=== PATIENT | male | born 1965 | race Caucasian/White ===

== ENCOUNTER 2016-12-27 16:36 | Emergency (ER) | payer OTHER ==
--- NOTE | ~2016-12-27 | CT71 ---
[facility] A Service of [facility] RADIOLOGY TEXT RESULTS PATIENT: NAY FLETCHER LOCATION: [facility] : 69 UNIT #: [id number] AGE: [address]: Don Whitley DO SEX: M ORDER DR: [id number] [facility] [address] [place], [place] [address] [id number] E MR#: [id number] Acc #: [id number] NAME: NAY FLETCHER : 1965 SEX: M STUDY DATE/TIME: 12/27/2016 19:33 UNIT: [facility] ROOM: STUDY DESCRIPTION: CT Head Wo Contrast Attending Physician: Don Whitley D.O. Ordering Physician: Don Whitley D.O. Primary Care Physician: No Primary Care Physician MEDICAL IMAGING REPORT This report is preliminary unless electronic signature is present EXAM Head CT 12/27 INDICATIONS Patient intoxicated with slurred speech and unsteady gait today. TECHNIQUE Axial images were obtained from the base to the vertex without contrast. This CT exam was performed with one or more of the following radiation dose reduction techniques: Automatic exposure control, adjustment of mA and/or kV according to patient size, and iterative reconstruction. COMPARISON 11/06/2016. FINDINGS Again seen is generalized atrophy. Ventricular size and configuration remain stable. Again seen are left craniotomy changes. There is an old area of encephalomalacia in the left frontoparietal lobe. This is unchanged. No acute infarct or hemorrhage is seen. There are no masses. Chronic mucosal thickening is noted in the paranasal sinuses. Acute sinus disease may be present in the right sphenoid sinus. Additionally, there appears to be some packing material in the left ear and there is debris in the external auditory canal. Correlate clinically with history and physical exam findings. There are old facial bone fractures. No skull fracture. IMPRESSION 1. No acute findings in the brain. Chronic changes as above appears stable. 2. Acute sinusitis involving the right sphenoid sinus. There are chronic changes in paranasal sinuses as well. [facility] A Service [facility] RADIOLOGY TEXT RESULTS PATIENT: NAY FLETCHER LOCATION: [facility] : 69 UNIT #: [id number] AGE: [address]: Don Whitley DO SEX: M ORDER DR: 3. Left craniotomy with numerous old facial bone fractures. 4. Apparent packing material in the left ear with debris or soft tissue in the external auditory canal. 5. Stable encephalomalacia in the left frontoparietal region. Dictated by... Marquis Turk Jr., M.D. THIS IS AN ELECTRONICALLY VERIFIED REPORT Marquis Turk Jr., M.D. at 12/28/2016 10:08 AM JOHNNY/jong TD: 12/28/2016 10:01 JOB #: [id number] MEDICAL IMAGING REPORT Page 1 of 1 COPY
--- NOTE | ~2016-12-27 | CR127 ---
[facility] A Service of [facility] RADIOLOGY TEXT RESULTS PATIENT: NAY FLETCHER LOCATION: [facility] : 69 UNIT #: [id number] AGE: [address]: Don Whitley DO SEX: M ORDER DR: [id number] [facility] [address]. [place], [place] [address] [id number] E MR#: [id number] Acc #: [id number] NAME: NAY FLETCHER : 1965 SEX: M STUDY DATE/TIME: 12/27/2016 16:59 UNIT: [facility] ROOM: STUDY DESCRIPTION: CR Foot Complete Min 3 View Rt Attending Physician: Don Whitley D.O. Ordering Physician: Don Whitley D.O. Primary Care Physician: Primary Care Physician No MEDICAL IMAGING REPORT This report is preliminary unless electronic signature is present EXAM Right foot 12/27/2016 HISTORY Pain with ambulation over the last 3 years. FINDINGS Three views of the left foot were obtained. Intramedullary luisa is present in the distal tibia. No fracture or malalignment is seen. The soft tissues are normal. IMPRESSION Intramedullary luisa in the distal tibia. The foot is normal. Dictated by... Marquis Turk Jr., M.D. THIS IS AN ELECTRONICALLY VERIFIED REPORT Marquis Turk Jr., M.D. at 12/28/2016 10:07 AM JOHNNY/yumiko TD: 12/28/2016 08:00 JOB #: [id number] MEDICAL IMAGING REPORT Page 1 of 1 COPY
--- NOTE | ~2016-12-27 | CR126 ---
[facility] A Service of [facility] & [facility] RADIOLOGY TEXT RESULTS PATIENT: NAY FLETCHER LOCATION: [facility] : 69 UNIT #: [id number] AGE: [address]: Don Whitley DO SEX: M ORDER DR: [id number] [facility] [address] [place], [place] [address] [id number] E MR#: [id number] Acc #: [id number] NAME: NAY FLETCHER : 1965 SEX: M STUDY DATE/TIME: 12/27/2016 16:58 UNIT: [facility] ROOM: STUDY DESCRIPTION: CR Foot Complete Min 3 View Lt Attending Physician: Don Whitley D.O. Ordering Physician: Don Whitley D.O. Primary Care Physician: No Primary Care Physician MEDICAL IMAGING REPORT This report is preliminary unless electronic signature is present EXAM Left foot series 12/27/2016 HISTORY Pain. Difficulty ambulating. Began 3 years ago. FINDINGS AP, lateral, and oblique radiographs of the right foot are presented. Comparison 07/27/2006. Healed distal third and fourth metatarsal shaft fractures. No acute fracture. No traumatic malalignment. There appears to be relative hyperextension at the metatarsal phalangeal joints particularly the second through fifth metatarsal phalangeal joints. This may be the normal alignment for this patient. Correlate clinically. There is no soft tissue defect, subcutaneous air, or radiodense foreign body. Dictated by... Mark Forbes M.D. THIS IS AN ELECTRONICALLY VERIFIED REPORT Mark Forbes M.D. at 12/28/2016 2:17 PM VALENTE/richard TD: 12/28/2016 08:18 JOB #: [id number] MEDICAL IMAGING REPORT Page 1 of 1 COPY
[~2016-12-27 16:36] MED LIST: ALBUTEROL17 GM INH; BACTROBAN22 GM TP; CYANOCOBALAM1000 MCG PO; FOLIC ACID PO; FOLIC ACID1 MG PO; KEPPRA500 M1 PO; KEPPRA500 MG PO; LIBRIUM25 MG PO; MAG-OX 400400 MG PO; MULTI VITAMIN1 EACH PO; MULTI-VITAMIN1 EAC1 PO; NAPROXEN PO; NICOTINE PATCH1 BOX TD; NO MEDICATIONS; PEN-VEE K PO; SYMBICORT INH; THERAPEUTIC VI1 EACH PO; THIAMINE HCL100 M1 PO; THIAMINE HCL100 MG PO; VICODIN 5/500 T1 TAB PO; VICODIN PO
[2016-12-27 16:45] LABS: BASOPHIL% 0.7 % (0-2.5); EOSINOPHIL# 0.2 X10e3 (0-0.7); EOSINOPHIL% 3.5 % (0.0-7.0); HEMATOCRIT 43.7 % (38.0-50.0); HEMOGLOBIN 14.7 gm/dL (13.0-16.0); LYMPHOCYTE# 1.9 X10e3 (1.0-3.5); MEAN CELL VOLUME 92.3 FL (83-96); MEAN CORPUSCULAR HEMOGLOBIN 31.1 PG (28-34); MEAN CORPUSCULAR HGB CONC 33.7 g/dL (30-36); MEAN PLATELET VOLUME 6.8 FL (6.5-11.5); MONOCYTE# 0.3 X10e3 (0-1.0); MONOCYTE% 3.7 % (3.0-12.0); NEUTROPHIL# 4.5 X10e3 (1.5-7.1); NEUTROPHIL% 65.1 % (40-75); PLATELET COUNT 296 X10e3 (140-420); RED BLOOD COUNT 4.74 X10e (3.90-5.60); RED CELL DISTRIBUTION WIDTH 13.2 % (11.0-15.5); WHITE BLOOD COUNT 6.9 X10e3 (4.0-10.5)
[2016-12-27 16:46] LABS: DIFF IND NO
[2016-12-27 17:25] LABS: BLOOD UREA NITROGEN 10 mg/dL (9-23); BUN/CREATININE RATIO 11.11; CALCIUM SERUM 8.9 mg/dL (8.4-10.2); CARBON DIOXIDE 28 mmol/L (22-31); CHLORIDE 108 mmol/L (100-111); CREATININE SERUM 0.9 mg/dL (0.6-1.4); GLOM FILT RATE Estimated ABOVE60 mL/min (>60); GLUCOSE FASTING 131 mg/dL (70-110); POTASSIUM 3.2 mmol/L (3.5-5.1); SODIUM 142 mmol/L (135-145)
[2016-12-27 17:26] LABS: ALCOHOL BLOOD 172 mg/dL (0)
== END 2016-12-27 22:35 | disposition home or self-care (01) ==
LOC: CED 16:36
PROVIDERS: Emergency Medicine
DX: F10.129 Alcohol abuse with intoxication, unspecified (principal); Y90.6 Blood alcohol level of 120-199 mg/100 ml; M79.673 Pain in unspecified foot; G40.909 Epilepsy, unspecified, not intractable, without status epilepticus; Z98.890 Other specified postprocedural states
CPT/HCPCS: 36415; 70450; 73630; 80048; 84484; 85025; 99284; G0480

== ENCOUNTER 2017-01-06 10:34 | Emergency (ER) | payer OTHER ==
--- NOTE | ~2017-01-06 | CR127 ---
[facility] A Service of [facility] RADIOLOGY TEXT RESULTS PATIENT: NAY FLETCHER LOCATION: [facility] : 69 UNIT #: [id number] AGE: [address]: Zeb Starkey MD SEX: M ORDER DR: [id number] [facility] [address]. [place], [place] [address] [id number] E MR#: [id number] Acc #: [id number] NAME: NAY FLETCHER : 1965 SEX: M STUDY DATE/TIME: 01/06/2017 10:28 UNIT: [facility] ROOM: STUDY DESCRIPTION: CR Foot Complete Min 3 View Rt Attending Physician: Zeb Starkey M.D. Ordering Physician: Zeb Starkey M.D. Primary Care Physician: Primary Care Physician No MEDICAL IMAGING REPORT This report is preliminary unless electronic signature is present HISTORY Right foot HISTORY Foot pain for the past 3 days. No recent trauma. TECHNIQUE 3 views foot were obtained. FINDINGS Mild degenerative changes are seen at the interphalangeal joint of the great toe. Other joint spaces of the foot unremarkable. There is no evidence of fracture, bone destruction or foreign body. IMPRESSION Mild degenerative change interphalangeal joint of the great toe. Otherwise negative. Dictated by... Marquis Cooper M.D. THIS IS AN ELECTRONICALLY VERIFIED REPORT Marquis Cooper M.D. at 01/06/2017 6:01 PM ISRAEL/yumiko TD: 01/06/2017 12:32 JOB #: [id number] MEDICAL IMAGING REPORT Page 1 of 1 COPY
--- NOTE | ~2017-01-06 | CR169 ---
[facility] A Service of [facility] & [facility] RADIOLOGY TEXT RESULTS PATIENT: NAY FLETCHER LOCATION: [facility] : 69 UNIT #: [id number] AGE: [address]: Zeb Starkey MD SEX: M ORDER DR: [id number] [facility] [address]. [place], [place] [address] [id number] E MR#: [id number] Acc #: [id number] NAME: NAY FLETCHER : 1965 SEX: M STUDY DATE/TIME: 01/06/2017 10:30 UNIT: [facility] ROOM: STUDY DESCRIPTION: CR Knee 2 Views Lt Attending Physician: Zeb Starkey M.D. Ordering Physician: Zeb Starkey M.D. Primary Care Physician: No Primary Care Physician MEDICAL IMAGING REPORT This report is preliminary unless electronic signature is present EXAM Left knee. HISTORY Knee pain the past 3 days. No recent trauma. TECHNIQUE 3 views of the knee were obtained. FINDINGS The upper end of a tibial luisa is noted. The knee joint is normal with no evidence of fracture, effusion, or osteophyte formation. IMPRESSION Healed tibial fracture. Negative knee series. Dictated by... Marquis Cooper M.D. THIS IS AN ELECTRONICALLY VERIFIED REPORT Marquis Cooper M.D. at 01/06/2017 6:01 PM ISRAEL/bárbara TD: 01/06/2017 12:37 JOB #: [id number] MEDICAL IMAGING REPORT Page 1 of 1 COPY
== END 2017-01-06 11:52 | disposition home or self-care (01) ==
LOC: CED 10:34
DX: G89.29 Other chronic pain (principal); M25.562 Pain in left knee; M79.671 Pain in right foot; E11.9 Type 2 diabetes mellitus without complications; F32.9 Major depressive disorder, single episode, unspecified; F17.200 Nicotine dependence, unspecified, uncomplicated
CPT/HCPCS: 73560; 73630; 99284

== ENCOUNTER 2017-01-16 19:58 | Emergency (ER) | payer OTHER | END 2017-01-16 23:13 | disposition home or self-care (01) | LOC: CED 19:58 | DX: G62.9 Polyneuropathy, unspecified (principal) | CPT/HCPCS: 99282 ==

== ENCOUNTER 2017-01-18 02:20 | Emergency (ER) | payer OTHER | END 2017-01-18 02:30 | disposition left against medical advice (07) | LOC: CED 02:20 | DX: Z53.21 Procedure and treatment not carried out due to patient leaving prior to being seen by health care provider (principal) ==

== ENCOUNTER 2017-01-25 02:13 | Emergency (ER) | payer OTHER | END 2017-01-25 05:30 | disposition home or self-care (01) | LOC: CED 02:13 | DX: F10.10 Alcohol abuse, uncomplicated (principal); F32.9 Major depressive disorder, single episode, unspecified; E11.9 Type 2 diabetes mellitus without complications; F17.200 Nicotine dependence, unspecified, uncomplicated | CPT/HCPCS: 99282 ==

== ENCOUNTER 2017-01-30 21:53 | Emergency (ER) | payer OTHER | END 2017-01-30 22:49 | disposition home or self-care (01) | LOC: CED 21:53 | DX: G44.209 Tension-type headache, unspecified, not intractable (principal); F17.210 Nicotine dependence, cigarettes, uncomplicated | CPT/HCPCS: 82947; 99282 ==

== ENCOUNTER 2017-02-03 06:33 | Emergency (ER) | payer OTHER ==
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
== END 2017-02-03 09:55 | disposition home or self-care (01) ==
LOC: CED 06:33
DX: F10.129 Alcohol abuse with intoxication, unspecified (principal); J32.9 Chronic sinusitis, unspecified; G40.909 Epilepsy, unspecified, not intractable, without status epilepticus; E11.9 Type 2 diabetes mellitus without complications
CPT/HCPCS: 70450; 82947; 99284; G0480

== ENCOUNTER 2017-02-22 20:05 | Emergency (ER) | payer OTHER | END 2017-02-22 22:35 | disposition home or self-care (01) | LOC: CED 20:05 | DX: M25.571 Pain in right ankle and joints of right foot (principal); E11.9 Type 2 diabetes mellitus without complications; F17.200 Nicotine dependence, unspecified, uncomplicated | CPT/HCPCS: 99282 ==

== ENCOUNTER 2017-03-03 23:04 | Emergency (ER) | payer OTHER ==
[2017-03-04 00:38] LABS: AMPHETAMINE NEG (NEG); BARBITURATES NEG (NEG); BENZODIAZEPINES NEG (NEG); COCAINE NEG (NEG); MARIJUANA NEG (NEG); OPIATES NEG (NEG); TRICYCLIC ANTIDEPRESSANTS NEG (NEG); U METHADONE NEG (NEG)
== END 2017-03-04 10:27 | disposition short-term general hospital (02) ==
LOC: CED 23:04
PROVIDERS: Student in an Organized Health Care Education/Training Program
DX: R45.851 Suicidal ideations (principal); J44.9 Chronic obstructive pulmonary disease, unspecified; F17.200 Nicotine dependence, unspecified, uncomplicated
CPT/HCPCS: 36415; 80307; 82947; 99285; G0480

== ENCOUNTER 2017-03-04 01:00 | Inpatient (IN) | payer OTHER ==
--- NOTE | ~2017-03-04 | DS ---
Unit #: [id number] #: [id number] Patient: NAY FLETCHER [id number] [facility] [address] [place] [address] [id number] I MR#: [id number] NAME: NAY FLETCHER ROOM: [facility] Age: 51 Sex: M Admission Date: 03/04/2017 : 1965 Discharge Date: 03/08/2017 Attending Physician: Zach Chao M.D. Primary Care Physician: Primary Care Physician No DISCHARGE SUMMARY REASON FOR ADMISSION Depression. DIAGNOSTIC STUDIES LABORATORY RESULTS: Unremarkable. HOSPITAL COURSE The patient was admitted to inpatient unit on 03/04/2017 and discharged on 03/08/2017. The patient was treated with group therapy, individual therapy, and medication management. The patient responded well with the above modalities of treatment, made progress. Subsequently, the patient was discharged. DISCHARGE MEDICATIONS The patient was discharged on the following medications: Celexa 20 mg at bedtime for depression and NovoLog as advised for diabetes. DISCHARGE DIAGNOSES Psychiatric: Major depressive disorder, recurrent, severe, F33.2. Secondary diagnosis: Deferred. Medical diagnoses: History of seizure, migraine headache, history of stroke, aneurysm, traumatic brain injury, diabetes. Stressors: Psychosocial stressors, financial problem, housing problem. DISCHARGE INSTRUCTIONS The patient is to follow up in outpatient clinic as per nephrology social worker. CONDITION ON DISCHARGE The patient was pleasant and cooperative. Denied any psychotic symptom or any suicidal ideation. PROGNOSIS Guarded. DIET AND ACTIVITY As tolerated. Dictated by... Zach Chao M.D. Unit #: [id number] #: [id number] Patient: NAY FLETCHER SZC/modl TD: 03/08/2017 23:20 JOB #: [id number] DISCHARGE SUMMARY Page 1 of 1 X Zcah Chao MD X DISCHARGE SUMMARY
--- NOTE | ~2017-03-04 | HP ---
Unit #: [id number] #: [id number] Patient: TALAT FLETCHER [id number] [place] [address] [id number] I MR#: [id number] NAME: TALAT FLETCHER ROOM: [facility] Age: 51 Sex: M Admission Date: 03/04/2017 : 1965 Attending Physician: Zach Chao M.D. Admitting Physician: Zach Chao M.D. Primary Care Physician: Primary Care Physician No HISTORY AND PHYSICAL HISTORY OF PRESENT ILLNESS Talat is a 51 year old admitted to [facility] because of his continued abuse of alcohol. PAST MEDICAL HISTORY 1. Long history of alcohol abuse 2. History of withdrawal seizures 3. Diabetes mellitus 4. Peripheral neuropathy 5. History of [facility] PAST SURGICAL HISTORY 1. Craniotomy 2. Fractured jaw with ORIF ALLERGIES No known drug allergies. SOCIAL HISTORY Smokes one pack per day. Drinks alcohol on a daily basis and denies illicit drug use. FAMILY HISTORY Medically noncontributory. REVIEW OF SYSTEMS CONSTITUTIONAL: No fever or chills. HEENT: Denies any sore throat, ear pain or runny nose. CARDIOVASCULAR: Denies chest pain, irregular heart rhythm or palpitations. CHEST: Denies shortness of breath or cough. No hemoptysis. GASTROINTESTINAL: Denies nausea, vomiting, diarrhea or chronic constipation. ENDOCRINE: Denies history of increased thirst or urination. No recent significant weight loss or gain. GENITOURINARY: Denies dysuria, frequency, or hematuria. SKIN: Denies any rashes. HEMATOLOGIC: Denies history of increased bleeding or bruising. MUSCULOSKELETAL: Denies any hot, swollen joints. No generalized muscle pain. NEUROLOGIC: Denies problems with vision or speech. No frequent, severe headaches. No numbness, tingling or weakness in any extremities. Denies loss of bladder or bowel control. Unit #: [id number] #: [id number] Patient: TALAT FLETCHER CURRENT MEDICATIONS Detox protocol PHYSICAL EXAMINATION GENERAL: Alert, well-nourished, in no apparent distress. VITAL SIGNS: Blood pressure 140/88, heart rate 80, respirations 16, temperature 98.6. WEIGHT: 145 pounds. HEIGHT: 5'7". SKIN: Warm and dry without rash or lesion. HEENT: Normocephalic. TMs not viewed. Oral and nasal passages clear. Conjunctivae clear. Pupils equal, round and reactive to light and accommodation. Extraocular movements intact. NECK: Supple without lymphadenopathy or thyromegaly. HEART: Regular rate and rhythm without murmur. LUNGS: Clear. ABDOMEN: Soft, nontender. : Not done. EXTREMITIES: No evidence of cyanosis, clubbing or edema. Moves all extremities without focal deficit. NEUROLOGICAL: Grossly within normal limits. Cranial Nerves: II: Visual masters are intact. III, IV AND : Extraocular movements are intact. Pupils are equal, round and reactive to light. V: Facial sensation is grossly normal. VII: Facial movements and expression are normal. VIII: Auditory acuity grossly intact. IX, X: Uvula is midline. Phonation is normal. XI: Patient shrugs shoulders and turns head normally. XII: Tongue protrudes in the midline. Sensory and Motor Function: Sensory and motor sensation is grossly normal. Motor: moves all extremities well. Coordination: Gait is normal. Deep Tendon Reflexes: Intact. IMPRESSION Psychiatric admission RECOMMENDATIONS PSYCHIATRIC: Per psychiatrist. MEDICAL: I see no contraindications to participating in facility's activities. MEDICAL PROGNOSIS Good. MEDICAL CONDITION Stable. Dictated by... Colleen Taylor PZairaAZaira-John. for Debbie Jacobson/eddie Unit #: [id number] #: [id number] Patient: TALAT FLETCHER TD: 03/05/2017 07:11 JOB #: [id number] HISTORY AND PHYSICAL Page 1 of 1 X Colleen Taylor X HISTORY AND PHYSICAL
--- NOTE | ~2017-03-04 | PN ---
Unit #: [id number] #: [id number] Patient: TALAT DING [id number] [facility] [address] [place] [address] [id number] I MR#: [id number] NAME: TALAT DING ROOM: [facility] Age: 51 Sex: M Admission Date: 03/04/2017 : 1965 Attending Physician: Zach Chao M.D. Admitting Physician: Debbie Shah PROGRESS NOTES DATE OF SERVICE: 03/05/2017 DISCUSSION Mr. Talat Ding is a 51-year-old male, seen on 03/05/2017. The patient interviewed, chart reviewed, and obtained information from nursing staff. The patient reported feeling sad, depressed, withdrawn, isolative, and flat affect. The patient's vital signs; temperature 98.4, heart rate 51, and blood pressure 110/72. REVIEW OF SYSTEMS Complete review of systems unremarkable. MENTAL STATUS EXAMINATION General appearance, the patient dressed casually. Hygiene and grooming, poor. Attention span and concentration, poor. Oriented in place and person. Mood and affect, sad and depressed. Speech, monotone. Thought process, concrete. The patient reported having suicidal ideation, no plans. Denied any homicidal ideation. Guarded. Recent and remote memory, poor. Insight and judgment, poor. DIAGNOSIS Major depressive disorder, recurrent, severe, F33.2. ASSESSMENT AND PLAN Advised to start the patient on Celexa 20 mg daily. If needed, consider further adjustment of medication. Dictated by... Debbie Shah/serafin TD: 03/06/2017 16:48 JOB #: [id number] Unit #: [id number] #: [id number] Patient: TALAT DING VEDAMARY PROGRESS NOTES Page 1 of 1 X Zach Chao MD PROGRESS NOTE
--- NOTE | ~2017-03-04 | PA ---
Unit #: [id number] #: [id number] [facility]: [facility] [id number] [facility] [address] [place] [address] [id number] I MR#: [id number] NAME: TALAT DING ROOM: [facility] Age: 51 Sex: M Admission Date: 03/04/2017 : 1965 Date of Assessment: Attending Physician: Zach Chao M.D. Admitting Physician: Zach Chao M.D. PSYCHIATRIC ASSESSMENT INFORMANT Patient reliability, fair informant, and chart reliability, good. CHIEF COMPLAINT Depression. HISTORY OF PRESENT ILLNESS Mr. Talat Ding is a 51-year-old male, admitted with the above-mentioned complaint. The patient presented with suicidal ideation. The patient reported that he does not want to live anymore, feeling of hopelessness, worthlessness, feeling miserable. The patient has a history of traumatic brain injury, history of diabetes type 2. The patient reported that he has no money, no food, no cloths, and homeless. The patient denied any homicidal ideation or any self-injurious behavior. The patient denied any hallucination. The patient reports that he is noncompliant with medication, not sleeping, and having nightmares. The patient needed inpatient admission at this time for psychiatric stabilization. PAST PSYCHIATRIC HISTORY Remarkable [facility]. History of previous multiple hospitalization in 2015. FAMILY HISTORY AND SOCIAL HISTORY The patient currently homeless. Family psychiatric illness is unknown. No known history of any abuse. Financial problem and housing problem. MEDICAL HISTORY Remarkable for history of craniotomy, left leg surgery, hand surgery, neck surgery, history of chronic pain, migraine, traumatic brain injury. Musculoskeletal; muscle strength and tone, no atrophy or abnormal movement. Gait normal. The patient has a history of diabetes, seizure, migraine, history of stroke, aneurysm, and traumatic brain injury. ALLERGIES No known drug allergies. MEDICATION HISTORY The patient is currently noncompliant with medication. REVIEW OF SYSTEMS HEENT: Eyes, clear. Ears, nose, mouth, and throat; clear. CARDIOVASCULAR: Unremarkable. RESPIRATORY: Unremarkable Unit #: [id number] #: [id number] Patient: TALAT DING GI: Unremarkable. : Unremarkable. Skin, lymph node, neurological, endocrine, hematological, allergic, immunologic;, unremarkable. Muscle strength and tone, no atrophy or abnormal movement. Gait normal. SUBSTANCE ABUSE HISTORY The patient reported tobacco use, age of onset 19; alcohol, age of onset 27. Marijuana abuse at 9. MENTAL STATUS EXAMINATION CONSTITUTIONAL: Measurement of vital signs; temperature is 98.7, pulse 51, respirations 16, and blood pressure 110/72. Height 5 feet 7 inches, weight 145 pounds. GENERAL APPEARANCE: The patient dressed casually. The patient did not show any facial deformity. MUSCULOSKELETAL: Please see above. PSYCHIATRIC EXAMINATION Description of speech; regular rate, normal volume. Description of thought process, goal directed. Description of association, intact. Description of abnormal psychotic thinking; the patient denied any hallucination, delusions, mood lability, or depression. Description of the patient's judgment, concerning everyday activity, poor. Social situation, poor. Concerning psychiatric condition, poor. Complete mental status examination; oriented in time, place, and person. Recent and remote memory, fair. Attention span and concentration, fair. Language, able to name object and repeat phrases. Fund of knowledge, aware of current event and past history. Vocabulary, fair to poor. Mood and affect, sad and dysphoric. Insight and judgment, fair to poor. ASSETS AND LIABILITIES Assets; the patient is articulate and able to take care of his ADL. Liability; history of depression, possible cognitive deficit from traumatic brain injury. ADMITTING DIAGNOSES Psychiatric: Major depressive disorder, recurrent, severe, F33.2. Secondary diagnosis: Deferred. Medical diagnosis: History of seizure, migraine headache, history of stroke, aneurysm, traumatic brain injury, diabetes. Stressors: Psychosocial stressor. Financial problem and housing problem. PSYCHIATRIC PLAN AND TREATMENT GOAL AND DISCHARGE PLAN 1. Advised to admit the patient on the inpatient unit, provide safe, supportive, and structured environment. 2. Order labs; CBC, CMP, UA, and UDS. 3. Precaution for self-harm. 4. The patient to attend all the programing on the inpatient unit, group therapy, individual therapy, family session if possible. Advised to resume the patient's medications. If needed, consider further adjustment of medication. Treatment goal to attain euthymic mood, gain insight into his problem, and learn coping skills. Unit #: [id number] #: [id number] Patient: TALAT DING DISCHARGE PLAN Plan to stabilize the patient and consider followup in outpatient program ESTIMATED LENGTH OF STAY 3 to 5 days. Dictated by... Debbie Shah/serafin TD: 03/05/2017 17:33 JOB #: [id number] PSYCHIATRIC ASSESSMENT Page 1 of 1 X Zach Chao MD X PSYCHIATRIC ASSESSMENT
--- NOTE | ~2017-03-04 | PN ---
Unit #: [id number] #: [id number] Patient: TALAT FLETCHER [id number] [facility] [address] [place] [address] [id number] MR#: [id number] NAME: TALAT FLETCHER ROOM: [facility] Age: 51 Sex: M Admission Date: 03/04/2017 : 1965 Attending Physician: Zach Chao M.D. Admitting Physician: Zach Chao M.D. Primary Care Physician: Primary Care Physician Pamela LOVE PROGRESS NOTES DATE 03/04/2017 DISCUSSION Mr. Talat Fletcher is a 51-year-old male seen on 03/06/2017. The patient interviewed, chart reviewed. Obtained information from nursing staff. The patient tolerating medication fairly well. Mood sad, dysphoric, flat affect, withdrawn, isolative, guarded. Vital signs stable 98.4, 70, 142/88. The patient seclusive, isolative, complete review of systems unremarkable. MENTAL STATUS EXAMINATION General appearance, the patient dressed casually in hospital attire. Attention span and concentration fair. Oriented to time, place and person. Mood and affect sad, depressed. Speech monotone. Thought process concrete. The patient denied any thoughts of harming self or others but having passive SI. Recent and remote memory poor. Insight and judgement poor. DIAGNOSES Mood disorder NOS Alcohol use disorder severe ASSESSMENT/PLAN Advise to continue with current medication and therapeutic protocol. If needed consider further adjustment of medication. Dictated by... Debbie Shah/eddie TD: 03/07/2017 12:44 JOB #: [id number] Unit #: [id number] #: [id number] Patient: TALAT FLETCHER VEDAMARY PROGRESS NOTES Page 1 of 1 X Zach Chao MD PROGRESS NOTE
--- NOTE | ~2017-03-04 | PN ---
Unit #: [id number] #: [id number] Patient: TALAT FLETCHER [id number] [facility] [address] [place] [address] [id number] MR#: [id number] NAME: TALAT FLETCHER ROOM: [facility] Age: 51 Sex: M Admission Date: 03/04/2017 : 1965 Attending Physician: Zach Chao M.D. Admitting Physician: Zach Chao M.D. Primary Care Physician: Primary Care Physician Pamela LOVE PROGRESS NOTES DATE 03/07/2017 DISCUSSION Talat Fletcher is a 51-year-old male seen on 03/07/2017. The patient interviewed, chart reviewed. Obtained information from nursing staff. The patient was compliant and cooperative. Mood sad, dysphoric, flat affect but able to contract for safety. Complete review of systems unremarkable. MENTAL STATUS EXAMINATION General appearance, the patient dressed in hospital attire. Attention span and concentration fair. Oriented to place and person. Mood and affect sad, dysphoric. Speech monotone. Thought process concrete. The patient denied any thoughts of harming self or others but guarded. Recent and remote memory poor. Insight and judgement poor. DIAGNOSES Bipolar mood disorder NOS ASSESSMENT/PLAN Advise to continue with current medication and therapeutic protocol. If needed consider further adjustment of medication. Dictated by... Debbie Shah/eddie TD: 03/08/2017 23:55 JOB #: [id number] Unit #: [id number] #: [id number] Patient: TALAT FLETCHER VEDAMARY PROGRESS NOTES Page 1 of 1 X Zach Chao MD PROGRESS NOTE
[2017-03-05 14:13] LABS: BASOPHIL# 0.1 X10e3 (0-0.3); BASOPHIL% 1.2 % (0-2.5); EOSINOPHIL# 0.3 X10e3 (0-0.7); EOSINOPHIL% 4.6 % (0.0-7.0); HEMATOCRIT 42.8 % (38.0-50.0); HEMOGLOBIN 14.2 gm/dL (13.0-16.0); LYMPHOCYTE# 1.9 X10e3 (1.0-3.5); LYMPHOCYTE% 33.1 % (17.0-45.0); MEAN CELL VOLUME 92.8 FL (83-96); MEAN CORPUSCULAR HEMOGLOBIN 30.9 PG (28-34); MEAN CORPUSCULAR HGB CONC 33.3 g/dL (30-36); MEAN PLATELET VOLUME 7.9 FL (6.5-11.5); MONOCYTE# 0.4 X10e3 (0-1.0); MONOCYTE% 6.2 % (3.0-12.0); NEUTROPHIL# 3.2 X10e3 (1.5-7.1); NEUTROPHIL% 54.9 % (40-75); PLATELET COUNT 232 X10e3 (140-420); RED BLOOD COUNT 4.61 X10e (3.90-5.60); RED CELL DISTRIBUTION WIDTH 13.4 % (11.0-15.5); WHITE BLOOD COUNT 5.9 X10e3 (4.0-10.5)
[2017-03-05 14:16] LABS: DIFF IND NO
[2017-03-05 14:50] LABS: ALBUMIN SERUM 3.9 g/dL (3.5-5.0); BILIRUBIN,TOTAL 0.3 mg/dL (0.2-2.0); BUN/CREATININE RATIO 21.25; CREATININE SERUM 0.8 mg/dL (0.6-1.4); GLOM FILT RATE Estimated 104.9 mL/min (>60); POTASSIUM 4.1 mmol/L (3.5-5.1)
[2017-03-06 11:47] LABS: URINE APPEARANCE CLEAR; URINE BILIRUBIN NEG (NEG); URINE BLOOD NEG (NEG); URINE COLOR YELLOW; URINE GLUCOSE NEG (NEG); URINE KETONE NEG (NEG); URINE LEUKOCYTE ESTERASE NEG (NEG); URINE NITRATE NEG (NEG); URINE PH 6.5 (5-8); URINE PROTEIN NEG (NEG); URINE SPECIFIC GRAVITY 1.007 (1.003-1.035); URINE UROBILINOGEN 0.2 MG/DL (NEG)
== END 2017-03-08 11:19 | DRG 885 ==
LOC: P1E 10:59 → POF 10:59 → P1S 13:05 → P1E 14:11
PROVIDERS: Psychiatry & Neurology Psychiatry
DX: F33.2 Major depressive disorder, recurrent severe without psychotic features (principal); E11.9 Type 2 diabetes mellitus without complications; R45.851 Suicidal ideations; Z86.73 Personal history of transient ischemic attack (TIA), and cerebral infarction without residual deficits; Z87.820 Personal history of traumatic brain injury; Z59.0 Homelessness; Z91.14 Patient's other noncompliance with medication regimen; F17.210 Nicotine dependence, cigarettes, uncomplicated; F10.20 Alcohol dependence, uncomplicated
CPT/HCPCS: 80053; 81003; 82947; 85025; 86592

== ENCOUNTER 2017-03-13 16:20 | Emergency (ER) | payer OTHER ==
[2017-03-13 21:09] LABS: AMPHETAMINE NEG (NEG); BARBITURATES NEG (NEG); BENZODIAZEPINES NEG (NEG); COCAINE NEG (NEG); MARIJUANA NEG (NEG); OPIATES NEG (NEG); TRICYCLIC ANTIDEPRESSANTS NEG (NEG); U METHADONE NEG (NEG)
== END 2017-03-14 01:20 ==
LOC: CED 16:20 → CFTX 20:28
PROVIDERS: Emergency Medicine
DX: R45.850 Homicidal ideations (principal); R56.9 Unspecified convulsions; F17.200 Nicotine dependence, unspecified, uncomplicated
CPT/HCPCS: 36415; 80307; 99285; G0480

== ENCOUNTER 2017-03-13 21:00 | Inpatient (IN) | payer OTHER ==
--- NOTE | ~2017-03-13 | PA ---
Unit #: [id number] #: [id number] Patient: TALAT DING [id number] [facility] [address] [place] [address] [id number] I MR#: [id number] NAME: TALAT DING ROOM: [facility] Age: 51 Sex: M Admission Date: 03/14/2017 : 1965 Date of Assessment: 03/14/2017 Attending Physician: Zach Chao M.D. Admitting Physician: Zach Chao M.D. Primary Care Physician: Primary Care Physician No PSYCHIATRIC ASSESSMENT INFORMANTS The patient's reliability, fair; chart reliability, good. CHIEF COMPLAINT Depression and suicidal ideation. HISTORY OF PRESENT ILLNESS Mr. Talat Ding is a 51-year-old male, well known to us from his previous admission on 03/04/2017, presented with suicidal ideation, unable to contract for safety. The patient reported thoughts of cutting himself with a jig box operator. The patient denied any psychotic symptom. Reports maintaining sobriety, compliant with medication. Denied any other complaints at this time. Needing inpatient admission at this time for psychiatric stabilization as the patient unable to contract for safety at this time. PAST PSYCHIATRIC HISTORY Remarkable [facility] on [facility]. FAMILY HISTORY AND SOCIAL HISTORY The patient currently homeless. No known history of any abuse. No history of any financial problems. MEDICAL HISTORY Remarkable for craniotomy, left leg surgery, hand surgery, neck surgery, history of chronic pain, migraine, traumatic brain injury. Musculoskeletal; strength and tone, no atrophy or abnormal movement. Gait abnormal. The patient has a history of seizure disorder, migraine, history of stroke, aneurysm, traumatic brain injury. ALLERGIES No known drug allergies. MEDICATIONS The patient is currently noncompliant with medication, but prescribed Celexa 20 mg daily. REVIEW OF SYSTEMS HEENT: Eyes, clear. Ears, nose, mouth, and throat; clear. CARDIOVASCULAR: Unremarkable. RESPIRATORY: Unremarkable. Unit #: [id number] #: [id number] Patient: TALAT DING GI: Unremarkable. : Unremarkable. SKIN: Unremarkable. LYMPH NODE: Unremarkable. NEUROLOGIC: Unremarkable. ENDOCRINE: Unremarkable. HEMATOLOGIC: Unremarkable. ALLERGIC/IMMUNOLOGIC: Unremarkable. MUSCULOSKELETAL: Muscle strength and tone, no atrophy or abnormal movement. Gait abnormal. SUBSTANCE ABUSE HISTORY The patient reported history of tobacco use, age of onset 19; alcohol, age of onset 27; marijuana, age of onset 9. MENTAL STATUS EXAMINATION CONSTITUTIONAL: Measurement of vital signs; temperature 97.4, pulse 78, respirations 18, blood pressure 128/87. GENERAL APPEARANCE: The patient dressed casually in hospital attire. No facial deformity noted. MUSCULOSKELETAL: Please see above. PSYCHIATRIC EXAMINATION Description of speech; slow. Description of thought process, goal directed. Description of association, intact. Description of abnormal psychotic thinking; the patient denied any hallucination or delusions, but suicidal ideation, denied any homicidal ideation. Mood lability. Description of the patient's judgment; concerning everyday activity, poor. Social situation, poor. Concerning psychiatric condition, poor. Complete mental status examination; oriented in time, place, and person. Recent and remote memory, fair. Attention span and concentration, fair. Language, able to name object and repeat phrases. Fund of knowledge, aware of current event and passive vocabulary intact. Mood and affect, sad and dysphoric. Insight and judgment, fair to poor. ASSETS AND LIABILITIES Assets; the patient is articulate, able to take care of his ADL. Liability; history of depression, homelessness. ADMITTING DIAGNOSES Psychiatric: Major depressive disorder, recurrent, severe, F33.2. Secondary diagnosis: Deferred. Medical diagnoses: History of seizure, migraine headache, history of stroke, aneurysm, traumatic brain injury, diabetes. Stressors: Psychosocial stressor, financial problem, and housing problem. PSYCHIATRIC PLAN AND TREATMENT GOAL 1. Advised to admit the patient on the inpatient unit. Provide safe, supportive, and structured environment. 2. Ordered labs; CBC, CMP, UA, and UDS. 3. Precaution for self-harm. The patient to resume home medication and if needed, consider further adjustment of medication. The patient to attend all the programing on the inpatient unit with group therapy, individual therapy. Treatment goal to attain euthymic mood, gain insight Unit #: [id number] #: [id number] Patient: TALAT DING into his problem, and learn coping skills. DISCHARGE PLAN Plan to stabilize the patient and consider followup in outpatient program. ESTIMATED LENGTH OF STAY 5 days. Dictated by... Zach Chao M.D. LUCY/serafin TD: 03/15/2017 07:56 JOB #: [id number] PSYCHIATRIC ASSESSMENT Page 1 of 1 X Zach Chao MD PSYCHIATRIC ASSESSMENT
--- NOTE | ~2017-03-13 | DS ---
Unit #: [id number] #: [id number] Patient: NAY FLETCHER [id number] [facility] [address] [place] [address] [id number] I MR#: [id number] NAME: NAY FLETCHER ROOM: [facility] Age: 51 Sex: M Admission Date: 03/14/2017 : 1965 Discharge Date: 03/15/2017 Attending Physician: Zach Chao M.D. DISCHARGE SUMMARY REASON FOR ADMISSION Suicidal ideation. DIAGNOSTIC STUDIES LABORATORY RESULTS: Unremarkable. HOSPITAL COURSE The patient was admitted to inpatient unit on 03/14/2017 and discharged on 03/15/2017. The patient was treated on the inpatient unit with medication management, psychotherapy, and structured milieu. The patient showed improvement, maintained safe behavior. The patient requested to be discharged. Subsequently, the patient was discharged with a plan to follow up in outpatient program, as the patient is not suicidal or homicidal. DISCHARGE MEDICATIONS Celexa 20 mg daily for depression. DISCHARGE DIAGNOSES Psychiatric: Major depressive disorder, recurrent, severe, F33.2. Secondary diagnosis: Deferred. Medical diagnosis: History of seizure disorder, migraine, history of stroke, aneurysm, traumatic brain injury, diabetes. Stressors: Psychosocial stressors. DISCHARGE INSTRUCTIONS The patient to follow up in outpatient clinic as per social services designee. CONDITION ON DISCHARGE The patient was pleasant and cooperative. Denied any psychotic symptom or any suicidal ideation. PROGNOSIS Guarded. DIET AND ACTIVITY As tolerated. Dictated by... Unit #: [id number] #: [id number] Patient: NAY FLETCHER Zach Chao M.D. SZC/starl TD: 03/16/2017 01:56 JOB #: [id number] DISCHARGE SUMMARY Page 1 of 1 X Zach Chao MD X DISCHARGE SUMMARY
--- NOTE | ~2017-03-13 | HP ---
Unit #: [id number] #: [id number] Patient: TALAT FLETCHER [id number] [facility] [address] [place] [address] [id number] I MR#: [id number] NAME: TALAT FLETCHER ROOM: [facility] Age: 51 Sex: M Admission Date: 03/14/2017 : 1965 Attending Physician: Zach Chao M.D. Admitting Physician: Zach Chao M.D. Primary Care Physician: Primary Care Physician No HISTORY AND PHYSICAL NOTE Talat is a 51 year old admitted to [address] [place] [address] because of his continued abuse of alcohol. He was discharged from this facility after treatment for the same. The patient was seen and H and P dated 03/04/2017 was reviewed. This is current. No changes. Please see H and P dated 03/04/2017. Dictated by... Colleen Taylor P.A.-C. for Debbie Jacobson/eddie TD: 03/15/2017 03:42 JOB #: [id number] HISTORY AND PHYSICAL Page 1 of 1 X Colleen Taylor HISTORY AND PHYSICAL
[2017-03-14 09:30] LABS: BASOPHIL# 0.1 X10e3 (0-0.3); EOSINOPHIL# 0.4 X10e3 (0-0.7); EOSINOPHIL% 6.4 % (0.0-7.0); HEMATOCRIT 42.1 % (38.0-50.0); LYMPHOCYTE# 2.6 X10e3 (1.0-3.5); LYMPHOCYTE% 44.4 % (17.0-45.0); MEAN CELL VOLUME 92.9 FL (83-96); MEAN CORPUSCULAR HEMOGLOBIN 30.9 PG (28-34); MEAN CORPUSCULAR HGB CONC 33.3 g/dL (30-36); MEAN PLATELET VOLUME 7.6 FL (6.5-11.5); MONOCYTE# 0.4 X10e3 (0-1.0); MONOCYTE% 6.8 % (3.0-12.0); NEUTROPHIL# 2.4 X10e3 (1.5-7.1); NEUTROPHIL% 41.4 % (40-75); PLATELET COUNT 236 X10e3 (140-420); RED BLOOD COUNT 4.53 X10e (3.90-5.60); RED CELL DISTRIBUTION WIDTH 13.6 % (11.0-15.5); WHITE BLOOD COUNT 5.9 X10e3 (4.0-10.5)
[2017-03-14 09:39] LABS: DIFF IND NO
[2017-03-14 09:49] LABS: ALBUMIN SERUM 3.9 g/dL (3.5-5.0); BILIRUBIN,TOTAL 1.1 mg/dL (0.2-2.0); BUN/CREATININE RATIO 16.66; CALCIUM SERUM 9.1 mg/dL (8.4-10.2); CREATININE SERUM 0.9 mg/dL (0.6-1.4); GLOM FILT RATE Estimated 99.9 mL/min (>60); POTASSIUM 3.9 mmol/L (3.5-5.1)
[2017-03-15 09:56] LABS: URINE APPEARANCE CLEAR; URINE BILIRUBIN NEG (NEG); URINE BLOOD NEG (NEG); URINE COLOR DK YELLOW; URINE GLUCOSE NEG (NEG); URINE KETONE NEG (NEG); URINE LEUKOCYTE ESTERASE NEG (NEG); URINE NITRATE NEG (NEG); URINE PH 5.5 (5-8); URINE PROTEIN NEG (NEG); URINE SPECIFIC GRAVITY 1.024 (1.003-1.035); URINE UROBILINOGEN 0.2 MG/DL (NEG)
== END 2017-03-15 12:00 | disposition home or self-care (01) | DRG 885 ==
LOC: P2L 03-14 01:48
PROVIDERS: Psychiatry & Neurology Psychiatry
DX: F33.2 Major depressive disorder, recurrent severe without psychotic features (principal); E11.9 Type 2 diabetes mellitus without complications; R45.851 Suicidal ideations; Z86.73 Personal history of transient ischemic attack (TIA), and cerebral infarction without residual deficits; Z87.820 Personal history of traumatic brain injury; Z59.0 Homelessness; G40.909 Epilepsy, unspecified, not intractable, without status epilepticus
CPT/HCPCS: 80053; 81003; 82947; 85025; 86592

== ENCOUNTER 2017-03-22 03:53 | Emergency (ER) | payer OTHER | END 2017-03-22 11:55 | disposition home or self-care (01) | LOC: CED 03:53 | DX: M79.671 Pain in right foot (principal); M79.672 Pain in left foot; R51 Headache; E11.9 Type 2 diabetes mellitus without complications; F17.200 Nicotine dependence, unspecified, uncomplicated | CPT/HCPCS: 99283 ==

== ENCOUNTER 2017-03-25 12:08 | Emergency (ER) | payer OTHER ==
[2017-03-25 13:39] LABS: BASOPHIL% 0.6 % (0-2.5); DIFF IND NO; EOSINOPHIL# 0.2 X10e3 (0-0.7); HEMATOCRIT 41.8 % (38.0-50.0); LYMPHOCYTE# 1.9 X10e3 (1.0-3.5); LYMPHOCYTE% 33.2 % (17.0-45.0); MEAN CELL VOLUME 92.9 FL (83-96); MEAN CORPUSCULAR HEMOGLOBIN 31.2 PG (28-34); MEAN CORPUSCULAR HGB CONC 33.6 g/dL (30-36); MONOCYTE# 0.3 X10e3 (0-1.0); MONOCYTE% 4.5 % (3.0-12.0); NEUTROPHIL# 3.3 X10e3 (1.5-7.1); NEUTROPHIL% 58.7 % (40-75); PLATELET COUNT 222 X10e3 (140-420); RED CELL DISTRIBUTION WIDTH 13.5 % (11.0-15.5); WHITE BLOOD COUNT 5.7 X10e3 (4.0-10.5)
[2017-03-25 14:05] LABS: ALKALINE PHOSPHATASE 72 U/L (32-92); ALT (SGPT) 15 U/L (10-40); AST (SGOT) 18 U/L (10-42); BILIRUBIN, DIRECT 0.1 mg/dL (0.0-0.2); BILIRUBIN,INDIRECT 0.4 mg/dL (0.0-0.9); BILIRUBIN,TOTAL 0.5 mg/dL (0.2-2.0); BLOOD UREA NITROGEN 13 mg/dL (9-23); BUN/CREATININE RATIO 21.66; CALCIUM SERUM 8.4 mg/dL (8.4-10.2); CARBON DIOXIDE 25 mmol/L (22-31); CHLORIDE 112 mmol/L (100-111); CREATININE SERUM 0.6 mg/dL (0.6-1.4); GLOM FILT RATE Estimated 118.1 mL/min (>60); GLUCOSE FASTING 92 mg/dL (70-110); POTASSIUM 3.4 mmol/L (3.5-5.1); PROTEIN TOTAL SERUM 6.2 g/dL (6.0-8.3); SALICYLATE <4.0 mg/dL; SODIUM 144 mmol/L (135-145)
[2017-03-25 14:10] LABS: ACETAMINOPHEN <10 ug/mL
[2017-03-25 14:11] LABS: ALCOHOL BLOOD 245 mg/dL (0)
== END 2017-03-25 17:25 | disposition home or self-care (01) ==
LOC: CED 12:08
PROVIDERS: Emergency Medicine
DX: F10.20 Alcohol dependence, uncomplicated (principal); E11.9 Type 2 diabetes mellitus without complications; Y90.8 Blood alcohol level of 240 mg/100 ml or more; F17.200 Nicotine dependence, unspecified, uncomplicated
CPT/HCPCS: 36415; 80048; 80076; 82947; 85025; 96365; 99285; G0480; J3411; J3475

== ENCOUNTER 2017-04-03 20:13 | Emergency (ER) | payer OTHER | END 2017-04-03 21:55 | disposition home or self-care (01) | LOC: CED 20:13 | DX: M79.671 Pain in right foot (principal); M79.672 Pain in left foot; G89.29 Other chronic pain; M79.641 Pain in right hand; M79.642 Pain in left hand; F17.200 Nicotine dependence, unspecified, uncomplicated | CPT/HCPCS: 96372; 99283; J1885 ==

== ENCOUNTER 2017-04-11 10:39 | Inpatient (IN) | payer OTHER ==
--- NOTE | ~2017-04-11 | EKG ---
PATIENT: NAY FLETCHER UNIT #: [id number] Ventricular Rate: 50 BPM Atrial Rate: 50 BPM P-R Interval: 156 ms QRS Duration: 98 ms Q-T Interval: 448 ms QTC Calculation(Bezet): 408 ms P [place]: 62 degrees Calculated R [place]: 101 degrees Calculated T [place]: 90 degrees Diagnosis Line: Sinus bradycardia Diagnosis Line: Rightward axis Diagnosis Line: Otherwise normal ECG Diagnosis Line: When compared with ECG of 01-MAY-2016 09:35, Diagnosis Line: No significant change was found Diagnosis Line: Confirmed by EVANS CERVANTES MD ([id number]) on 04/12/2017 Diagnosis Line: 3:25:49 PM INTERPRETING MD: BILLY VIDALES
--- NOTE | ~2017-04-11 | CT17 ---
[facility] A Service of [facility] RADIOLOGY TEXT RESULTS PATIENT: NAY FLETCHER LOCATION: [facility] [place] [facility] 567-01 : [birth year] UNIT #: [id number] AGE: [address]: Damien Peña MD SEX: M ORDER DR: [id number] [facility] [address] [place], [place] [address] [id number] I MR#: [id number] Acc #: [id number] NAME: NAY FLETCHER : 1965 SEX: M STUDY DATE/TIME: 04/11/2017 12:44 UNIT: [facility] [place] [facility] ROOM: [facility] STUDY DESCRIPTION: CT Angio Head Attending Physician: Judith Bean M.D. Ordering Physician: Alexandru Jarvis M.D. Primary Care Physician: Primary Care Physician No MEDICAL IMAGING REPORT This report is preliminary unless electronic signature is present EXAM Head and neck CT angiogram, 04/11/2017 INDICATION Left side weakness today. History of seizures. TECHNIQUE Axial images were obtained through the head and neck following IV contrast administration. 3-D reformats were obtained. No comparison CTA. This CT exam was performed with one or more of the following radiation dose reduction techniques: automatic exposure control, adjustment of mA and/or kV according to patient size, and iterative reconstruction. FINDINGS In the neck, there is no carotid or vertebral stenosis by NASCET criteria. There is no plaque disease. There is no dissection. There is a normal branching pattern from the arch. Intracranially, there is no flow-limiting stenosis or vascular malformation. No aneurysm is seen. No vessel cutoff. Major dural venous sinuses are patent. The patient has a left side craniotomy. Chronic low attenuation change is again seen in the left parietal lobe. No abnormal enhancement is seen within the brain. IMPRESSION 1. 0% stenosis in the carotid and vertebral vasculature within the neck by NASCET anteriorly. No plaque or dissection. 2. 0% stenosis intracranially by NASCET criteria. No vessel cutoff. No aneurysm. 3. Left side craniotomy with chronic low attenuation change in the left parietal lobe. [facility] A Service of [facility] RADIOLOGY TEXT RESULTS PATIENT: NAY FLETCHER LOCATION: [facility] [place] [facility] 567-01 : [birth year] UNIT #: [id number] AGE: [address]: Damien Peña MD SEX: M ORDER DR: 4. Please note that this patient has had at least 60 prior CTs since 2010. Dictated by... Marquis Turk Jr., M.D. THIS IS AN ELECTRONICALLY VERIFIED REPORT Marquis Turk Jr., M.D. at 04/13/2017 7:21 AM JOHNNY/geovanni TD: 04/12/2017 04:22 JOB #: [id number] MEDICAL IMAGING REPORT Page 1 of 1 COPY
--- NOTE | ~2017-04-11 | CR72 ---
[facility] A Service of [facility] RADIOLOGY TEXT RESULTS PATIENT: NAY FLETCHER LOCATION: [facility] 567-01 : [birth year] UNIT #: [id number] AGE: [address]: Damien Peña MD SEX: M ORDER DR: [id number] [facility] [address] [place], [place] [address] [id number] I MR#: [id number] Acc #: [id number] NAME: NAY FLETCHER : 1965 SEX: M STUDY DATE/TIME: 04/11/2017 11:14 UNIT: [facility] ROOM: [facility] STUDY DESCRIPTION: CR Chest Single View Portable Attending Physician: Judith Bean M.D. Ordering Physician: Alexandru Jarvis M.D. Primary Care Physician: Primary Care Physician No MEDICAL IMAGING REPORT This report is preliminary unless electronic signature is present EXAM Portable chest x-ray, 04/11/2017 HISTORY Left side weakness. FINDINGS AP radiograph of the chest is presented. Comparison to 05/01/2016. No acute appearing bony abnormality. Heart and mediastinum within normal limits of size and contour given obliquity. The lungs are moderately well inflated. There is no evidence of acute infectious or inflammatory disease, pleural effusion or pneumothorax. No suspicious nodule. Old healed posterior right sixth rib fracture unchanged. Dictated by... Mark Forbes M.D. THIS IS AN ELECTRONICALLY VERIFIED REPORT Mark Forbes M.D. at 04/13/2017 11:34 AM VALENTE/geovanni TD: 04/11/2017 21:05 JOB #: [id number] MEDICAL IMAGING REPORT Page 1 of 1 COPY
--- NOTE | ~2017-04-11 | HP ---
Unit #: [id number] #: [id number] Patient: NAY FLETCHER [id number] [address] [address] [id number] MR#: [id number] NAME: NAY FLETCHER ROOM: Age: 51 Sex: M Admission Date: 04/11/2017 : 1965 Attending Physician: Alexandru Jarvis M.D. Primary Care Physician: No Primary Care Physician HISTORY AND PHYSICAL CHIEF COMPLAINT Alcohol intoxication. HISTORY OF PRESENT ILLNESS The patient is a 51-year-old male with the past medical history of alcohol abuse, brought to the emergency room by the EMS. The patient was found sleeping on a porch of other people. The patient also complained of the left-sided weakness for the last few days to weeks. The patient is found be in alcoholic intoxication with the alcohol level of 202. The patient is being admitted for the above reasons. The patient also complains of the fall of unknown time. The patient was seen here in the hospital a few years ago with the similar problems in the past. The patient stated that he has been drinking vodka, a pint of vodka. The last drink was a few days ago. PAST MEDICAL HISTORY History of seizures, altered mental status, chronic back pain, migraine, alcoholism with a history of withdrawal seizures, traumatic brain injury, history of left humeral fracture. PAST SURGICAL HISTORY Neck surgery, craniotomy, left leg surgery. SOCIAL HISTORY The patient smokes half a pack per day and drinks vodka, a pint of vodka daily, denies any illicit drug abuse. FAMILY HISTORY Reviewed and none. ALLERGIES No known drug allergies. HOME MEDICATIONS None. REVIEW OF SYMPTOMS Fourteen-point review of symptoms performed and only pertinent positive findings are described above, remaining are negative. PHYSICAL EXAMINATION GENERAL APPEARANCE: On examination the patient is lying on a bed not in acute distress. Unit #: [id number] #: [id number] Patient: NAY FLETCHER VITAL SIGNS: Temperature 97.6, pulse 62, respiratory rate 16, blood pressure 102/75, sating 98% at room air. HEENT: Head atraumatic/normocephalic. Pupils equal, round and reacting to light and accommodation. Dry mucous membrane. NECK: Supple. LUNGS: Decreased air entry at the bases. HEART: Regular rate and rhythm. ABDOMEN: Soft, positive bowel sounds. EXTREMITIES: No cyanosis. No clubbing. NEUROLOGIC: The patient has weakness in the left upper extremity and lower extremity. It is 2/5 in motor strength compared to 5/5 on the right side. DIAGNOSTIC STUDIES LABORATORY DATA: Glucose is 81, sodium 142, potassium 3, chloride 107, bicarb 28, glucose 84, BUN 14, creatinine 0.9, AST 17, ALT 15, albumin 4.1, alcohol 202, INR is 1.1 and urine drug screen is negative. Troponin less than 0.05. WBC 6.3, hemoglobin 13.4, hematocrit 39.9, platelets 243. IMAGING: CT of the head is negative. CARDIOVASCULAR: The EKG shows sinus bradycardia at a rate of 60 beats per minute with a QTc of 408. ASSESSMENT 1. Alcohol intoxication. 2. Left-sided weakness. 3. Hypokalemia. PLAN Plan to admit the patient to the inpatient with the telemetry. Continue with the CIWA protocol. Will have the neuro consult for the left-sided weakness and may check the MRI of the brain without contrast and replace the potassium per protocol and continue with the neuro checks and the Ativan 1 mg p.r.n. for the seizures. Further recommendations will follow as more lab results are available. Dictated by Debbie Bah/isi TD: 04/11/2017 17:13 JOB #: [id number] HISTORY AND PHYSICAL Page 1 of 1 X JUANITA LEACH MD X HISTORY AND PHYSICAL
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
--- NOTE | ~2017-04-11 | CT71 ---
[facility] A Service of [facility] RADIOLOGY TEXT RESULTS PATIENT: NAY FLETCHER LOCATION: [facility] [address] : [birth year] UNIT #: [id number] AGE: [address]: Damien Peña MD SEX: M ORDER DR: [id number] [facility] [address] [facility]. [place], [place] [address] [id number] I MR#: [id number] Acc #: [id number] NAME: NAY FLETCHER : 1965 SEX: M STUDY DATE/TIME: 04/11/2017 12:19 UNIT: [facility] ROOM: [facility] STUDY DESCRIPTION: CT Head Wo Contrast Attending Physician: Judith Bean M.D. Ordering Physician: Alexandru Jarvis M.D. MEDICAL IMAGING REPORT This report is preliminary unless electronic signature is present EXAM Head CT no contrast 04/11/[address] This CT exam was performed with one or more of the following radiation dose reduction techniques: automatic exposure control, adjustment of mA and/or kV according to patient size, and iterative reconstruction. FINDINGS There is some right sphenoid and bilateral ethmoid sinus mucosal thickening and left maxillary post-traumatic deformity or mucosal thickening. There is a rightward nasal bone old fracture and there has been left cranioplasty. These findings are stable since the prior study. There is no intracranial hemorrhage or mass and while there is a left posterior frontal cortical encephalomalacia, there is no acute abnormality or interval change since 02/03/2017. IMPRESSION Chronic changes. No acute abnormality. No interval change since 02/03/2017. Dictated by... Kavon Delgado M.D. THIS IS AN ELECTRONICALLY VERIFIED REPORT Kavon Delgado M.D. at 04/20/2017 10:39 AM TEV/pcl [facility] A Service of [facility] RADIOLOGY TEXT RESULTS PATIENT: NAY FLETCHER LOCATION: [facility] 567 : [birth year] UNIT #: [id number] AGE: [address]: Damien Peña MD SEX: M ORDER DR: TD: 04/11/2017 23:07 JOB #: [id number] MEDICAL IMAGING REPORT Page 1 of 1 COPY
--- NOTE | ~2017-04-11 | CT23 ---
[facility] A Service of [facility] & [facility] RADIOLOGY TEXT RESULTS PATIENT: NAY FLETCHER LOCATION: [facility] 567-01 : [birth year] UNIT #: [id number] AGE: [address]: Damien Peña MD SEX: M ORDER DR: [id number] [place] [address] [place], [place] [address] [id number] I MR#: [id number] #: [id number] NAME: NAY FLETCHER : 1965 SEX: M STUDY DATE/TIME: 04/11/2017 12:44 UNIT: [facility] ROOM: [facility] STUDY DESCRIPTION: CT Angio Neck Attending Physician: Judith Bean M.D. Ordering Physician: Alexandru Jarvis M.D. Primary Care Physician: Primary Care Physician No MEDICAL IMAGING REPORT This report is preliminary unless electronic signature is present EXAM CTA neck, 04/11/2017 For results of this exam please see report of CTA head of the same date. Dictated by... Marquis Turk Jr., M.D. THIS IS AN ELECTRONICALLY VERIFIED REPORT Marquis Turk Jr., M.D. at 04/13/2017 7:22 AM JOHNNY/geovanni TD: 04/12/2017 04:24 JOB #: [id number] MEDICAL IMAGING REPORT Page 1 of 1 COPY
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
[2017-04-11 11:22] LABS: BASOPHIL# 0.1 X10e3 (0-0.3); BASOPHIL% 1.1 % (0-2.5); EOSINOPHIL# 0.2 X10e3 (0-0.7); EOSINOPHIL% 2.6 % (0.0-7.0); HEMATOCRIT 39.9 % (38.0-50.0); HEMOGLOBIN 13.4 gm/dL (13.0-16.0); LYMPHOCYTE# 2.1 X10e3 (1.0-3.5); MEAN CELL VOLUME 93.7 FL (83-96); MEAN CORPUSCULAR HEMOGLOBIN 31.5 PG (28-34); MEAN CORPUSCULAR HGB CONC 33.6 g/dL (30-36); MEAN PLATELET VOLUME 7.1 FL (6.5-11.5); MONOCYTE# 0.4 X10e3 (0-1.0); NEUTROPHIL# 3.6 X10e3 (1.5-7.1); NEUTROPHIL% 56.3 % (40-75); PLATELET COUNT 243 X10e3 (140-420); RED BLOOD COUNT 4.26 X10e (3.90-5.60); WHITE BLOOD COUNT 6.3 X10e3 (4.0-10.5)
[2017-04-11 11:26] LABS: DIFF IND NO
[2017-04-11 11:30] LABS: POC - CKMB 1.5 ng/mL (0.0-7.9); POC - TROPONIN <0.05 ng/mL (<=0.05)
[2017-04-11 11:39] LABS: AMPHETAMINE NEG (NEG); BARBITURATES NEG (NEG); BENZODIAZEPINES NEG (NEG); COCAINE NEG (NEG); MARIJUANA NEG (NEG); OPIATES NEG (NEG); TRICYCLIC ANTIDEPRESSANTS NEG (NEG); U METHADONE NEG (NEG)
[2017-04-11 11:41] LABS: INR 1.1; PARTIAL THROMBOPLASTIN TIME 26.7 SECONDS (23.5-31.3); PROTHROMBIN TIME (PATIENT) 11.8 SECONDS (10.0-11.7)
[2017-04-11 11:50] LABS: ALBUMIN SERUM 4.1 g/dL (3.5-5.0); ALKALINE PHOSPHATASE 65 U/L (32-92); ALT (SGPT) 15 U/L (10-40); AST (SGOT) 17 U/L (10-42); BILIRUBIN,TOTAL 0.7 mg/dL (0.2-2.0); BLOOD UREA NITROGEN 14 mg/dL (9-23); BUN/CREATININE RATIO 15.55; CALCIUM SERUM 8.5 mg/dL (8.4-10.2); CARBON DIOXIDE 28 mmol/L (22-31); CHLORIDE 107 mmol/L (100-111); CREATININE SERUM 0.9 mg/dL (0.6-1.4); GLOM FILT RATE Estimated 99.9 mL/min (>60); GLUCOSE FASTING 84 mg/dL (70-110); PROTEIN TOTAL SERUM 6.3 g/dL (6.0-8.3); SODIUM 142 mmol/L (135-145)
[2017-04-11 11:52] LABS: ALCOHOL BLOOD 202 mg/dL (0); BILIRUBIN, DIRECT <0.1 mg/dL (0.0-0.2); BILIRUBIN,INDIRECT 0.6 mg/dL (0.0-0.9)
[2017-04-11] MEDS ORDERED: NO MEDICATIONS (14:31)
[2017-04-11] MEDS ORDERED: IBUPROFEN800 MG PO (18:32)
[2017-04-12 06:11] LABS: HEMATOCRIT 38.7 % (38.0-50.0); HEMOGLOBIN 12.9 gm/dL (13.0-16.0); MEAN CELL VOLUME 93.6 FL (83-96); MEAN CORPUSCULAR HEMOGLOBIN 31.2 PG (28-34); MEAN CORPUSCULAR HGB CONC 33.3 g/dL (30-36); MEAN PLATELET VOLUME 7.4 FL (6.5-11.5); RED BLOOD COUNT 4.13 X10e (3.90-5.60); RED CELL DISTRIBUTION WIDTH 14.2 % (11.0-15.5); WHITE BLOOD COUNT 5.1 X10e3 (4.0-10.5)
[2017-04-12 07:25] LABS: BUN/CREATININE RATIO 17.14; CALCIUM SERUM 8.5 mg/dL (8.4-10.2); CREATININE SERUM 0.7 mg/dL (0.6-1.4); GLOM FILT RATE Estimated 110.9 mL/min (>60); POTASSIUM 4.4 mmol/L (3.5-5.1)
[2017-04-12] MEDS ORDERED: KEPPRA500 M1 PO (13:04)
== END 2017-04-12 16:49 | disposition home or self-care (01) | DRG 897 ==
LOC: CED 10:39 → CEDOF 15:45 → CED 15:53 → C5C 18:05 → CEDOF 18:05 → C5C 04-12 06:12
PROVIDERS: Emergency Medicine; Internal Medicine
DX: F10.229 Alcohol dependence with intoxication, unspecified (principal); E11.9 Type 2 diabetes mellitus without complications; Y90.7 Blood alcohol level of 200-239 mg/100 ml; Z87.820 Personal history of traumatic brain injury; M54.9 Dorsalgia, unspecified; G89.29 Other chronic pain; F17.210 Nicotine dependence, cigarettes, uncomplicated; Z91.14 Patient's other noncompliance with medication regimen; E87.6 Hypokalemia; Z59.0 Homelessness; R53.1 Weakness
CPT/HCPCS: 36415; 70450; 70496; 70498; 71010; 80048; 80076; 80307; 82553; 82947; 84484; 85025; 85027; 85610; 85730; 93005; 96365; 99285; G0480; J3411; J3475; J7042; Q9967

== ENCOUNTER 2017-04-13 01:42 | Emergency (ER) | payer OTHER ==
[~2017-04-13 01:42] MED LIST changes: +IBUPROFEN800 MG PO
== END 2017-04-13 02:58 | disposition home or self-care (01) ==
LOC: CED 01:42
DX: S50.311A Abrasion of right elbow, initial encounter (principal); F17.200 Nicotine dependence, unspecified, uncomplicated; Z79.899 Other long term (current) drug therapy; W01.0XXA Fall on same level from slipping, tripping and stumbling without subsequent striking against object, initial encounter; Y92.410 Unspecified street and highway as the place of occurrence of the external cause
CPT/HCPCS: 99283

== ENCOUNTER 2017-04-15 13:47 | Emergency (ER) | payer OTHER | END 2017-04-15 20:20 | disposition home or self-care (01) | LOC: CED 13:47 | DX: F10.129 Alcohol abuse with intoxication, unspecified (principal); Y90.9 Presence of alcohol in blood, level not specified; F17.200 Nicotine dependence, unspecified, uncomplicated | CPT/HCPCS: 99284 ==

== ENCOUNTER 2017-04-17 21:35 | Emergency (ER) | payer OTHER | END 2017-04-18 06:39 | disposition home or self-care (01) | LOC: CED 21:35 | DX: I95.9 Hypotension, unspecified (principal); M79.671 Pain in right foot; M79.672 Pain in left foot; G89.29 Other chronic pain; F10.10 Alcohol abuse, uncomplicated; Y90.9 Presence of alcohol in blood, level not specified | CPT/HCPCS: 96360; 96361; 99284 ==

== ENCOUNTER 2017-04-18 21:05 | Emergency (ER) | payer OTHER | END 2017-04-18 23:45 | disposition left against medical advice (07) | LOC: CED 21:05 | DX: Z53.21 Procedure and treatment not carried out due to patient leaving prior to being seen by health care provider (principal) ==

== ENCOUNTER 2017-04-21 11:32 | Emergency (ER) | payer OTHER | END 2017-04-21 12:12 | disposition home or self-care (01) | LOC: CED 11:32 → CFTX 11:32 | DX: Z76.0 Encounter for issue of repeat prescription (principal); M79.671 Pain in right foot; M79.672 Pain in left foot; E11.9 Type 2 diabetes mellitus without complications; G43.909 Migraine, unspecified, not intractable, without status migrainosus | CPT/HCPCS: 99281 ==

== ENCOUNTER 2017-04-25 19:43 | Emergency (ER) | payer OTHER | END 2017-04-25 22:08 | disposition left against medical advice (07) | LOC: CED 19:43 | DX: Z53.21 Procedure and treatment not carried out due to patient leaving prior to being seen by health care provider (principal) | CPT/HCPCS: J1885 ==

== ENCOUNTER 2017-04-26 09:51 | Emergency (ER) | payer OTHER | END 2017-04-26 12:00 | disposition home or self-care (01) | LOC: CED 09:51 | DX: Z76.0 Encounter for issue of repeat prescription (principal); F17.200 Nicotine dependence, unspecified, uncomplicated; F10.10 Alcohol abuse, uncomplicated | CPT/HCPCS: 99281 ==

== ENCOUNTER 2017-05-05 12:01 | Inpatient (IN) | payer OTHER ==
--- NOTE | ~2017-05-05 | CT71 ---
[facility] A Service of [facility] & [facility] RADIOLOGY TEXT RESULTS PATIENT: NAY FLETCHER LOCATION: [facility] : [birth year] UNIT #: [id number] AGE: [address]: Melissa Ortiz MD SEX: M ORDER DR: [id number] [facility] [address] [place], [place] [address] [id number] MR#: [id number] Acc #: [id number] NAME: NAY FLETCHER : 1965 SEX: M STUDY DATE/TIME: 05/05/2017 14:31 UNIT: [facility] ROOM: STUDY DESCRIPTION: CT Head Wo Contrast Attending Physician: Melissa Ortiz M.D. Ordering Physician: Melissa Ortiz M.D. Primary Care Physician: No Primary Care Physician MEDICAL IMAGING REPORT This report is preliminary unless electronic signature is present EXAM CT head HISTORY The history is hypotensive today. Complains of headache all over times today. Right lower quadrant pain today. Unable to raise arms above head. EtOH abuse. Seizures from withdrawal. Prior neck injury. Possible brain surgery. TECHNIQUE CT head performed skull base through vertex without intravenous contrast. This CT exam was performed with one or more of the following radiation dose reduction techniques: automatic exposure control, adjustment of mA and/or kV according to patient size, and iterative reconstruction. COMPARISON STUDIES Comparison 04/11/2017 FINDINGS Brainstem unremarkable. Cerebellum and cerebral hemispheres show overall preservation uribe matter - white matter differentiation. There is an area of encephalomalacic change in the right frontal lobe/frontoparietal junction region, which is unchanged from 04/11/2017. Overlying right frontoparietal craniotomy. Changes in the brain could be related to prior operative intervention or perhaps prior trauma or vascular insult. There is no evidence of acute cortical ischemia. No evidence of intracranial hemorrhage. The midline structures are nondisplaced. Ventricles, cisterns and sulci show mild to moderate generalized enlargement consistent with generalized atrophy. Stable. No intra or extraaxial mass effect. There are scattered cavernous carotid arterial calcifications. The intraorbital soft tissues are unremarkable. Craniotomy and franko hole changes are stable. Extensive mucosal thickening in frontal, ethmoid, STS. [facility] A Service of [facility] & [facility] RADIOLOGY TEXT RESULTS PATIENT: NAY FLETCHER LOCATION: [facility] : [birth year] UNIT #: [id number] AGE: [address]: Melissa Ortiz MD SEX: M ORDER DR: sphenoid, maxillary sinuses. Ethmoid and sphenoid findings less pronounced than on prior study. No air-fluid levels to clearly indicate acute sinusitis. IMPRESSION 1. No acute appearing abnormality seen in the brain. If the patient has ongoing neurologic symptoms, consider follow up imaging. 2. Chronic changes include the following: Mild to moderate generalized atrophy, encephalomalacic change left posterior frontal lobe/frontoparietal junction region. There is overlying left frontal parietal craniotomy and the chronic changes in the brain could reflect prior operative intervention, prior trauma or prior vascular insult. 3. No acute bony abnormality. Craniotomy and franko hole changes are stable. 4. Extensive paranasal sinus disease with mucosal thickening in frontal, ethmoid, sphenoid and maxillary sinuses. Improved appearance in the ethmoid and sphenoid sinuses compared to prior study with no indication of acute sinusitis. Dictated by... Mark Forbes M.D. THIS IS AN ELECTRONICALLY VERIFIED REPORT Mark Forbes M.D. at 05/05/2017 6:31 PM Donnell TD: 05/05/2017 16:51 JOB #: [id number] MEDICAL IMAGING REPORT Page 1 of 1 COPY
--- NOTE | ~2017-05-05 | DS ---
Unit #: [id number] #: [id number] Patient: NAY FLETCHER [id number] [address] [address] [id number] I MR#: [id number] NAME: NAY FLETCHER ROOM: 217 Age: 52 Sex: M Admission Date: 05/05/2017 : 1965 Discharge Date: 05/10/2017 Attending Physician: Angela Rendon M.D. Primary Care Physician: No Primary Care Physician DISCHARGE SUMMARY REASON FOR ADMISSION Weakness. HISTORY OF PRESENT ILLNESS The patient is a 52-year-old male who is a chronic alcoholic, homeless off and on, sometimes taken in by his sister. He presented to the ER secondary to profound weakness. He was noted to have a systolic blood pressure in the 80s, alcohol level of 235, as well as complaints of abdominal pain. He himself is a fairly poor historian, but secondary to abdominal pain, he underwent a CT abdomen and pelvis in the ER, which showed acute ascending diverticulitis; thus, he was admitted for alcohol intoxication, ascending diverticulitis, as well as hypotension. He was placed on telemetry floor in the initial part of his hospital stay, appropriately fluid resuscitated. He was placed on IV antibiotics in regard to his diverticulitis. His white count was initially normal. He was placed on NPO status and gradually transitioned to regular diet, which he tolerated well without difficulty. His Flagyl was transitioned to p.o. In regard to the patient's social situation, he stated that he was homeless; therefore, his discharge was placed on hold secondary to inappropriate disposition. Phone calls were then placed through social work to the patient's sister who said that she would try to take care of him at home. Therefore, at this point in time, the patient will be transitioned to the care of his sister. Overall, his long-term prognosis is guarded at best secondary to poor insight into disease process. He continues to drink alcohol on a daily basis. He does have a prior history of traumatic brain injury; however, certainly there may be a component of hepatic encephalopathy, as well. FINAL DISCHARGE DIAGNOSES 1. Acute ascending diverticulitis, now resolving. 2. Hypotension in emergency room, now resolved. 3. Chronic alcohol abuse/dependence. 4. Prior history of traumatic brain injury. 5. Chronic back pain. 6. Homelessness/poor social support. FINAL DISCHARGE MEDICATIONS 1. Tylenol 650 mg p.o. q.6 p.r.n. 2. Flagyl 500 mg p.o. q.8 x10 days. 3. Aldactone 25 mg p.o. daily. Unit #: [id number] #: [id number] Patient: NAY FLETCHER DISCHARGE CONDITION Stable. DISCHARGE DISPOSITION Home. Dictated by... Debbie Jacobson/eliza TD: 05/11/2017 12:02 JOB #: [id number] DISCHARGE SUMMARY Page 1 of 1 X Angela Rendon MD X DISCHARGE SUMMARY
--- NOTE | ~2017-05-05 | EKG ---
PATIENT: NAY FLETCHER UNIT #: [id number] Ventricular Rate: 50 BPM Atrial Rate: 50 BPM P-R Interval: 162 ms QRS Duration: 76 ms Q-T Interval: 420 ms QTC Calculation(Bezet): 382 ms P Amelia: 49 degrees Calculated R Amelia: 89 degrees Calculated T Amelia: 75 degrees Diagnosis Line: Sinus bradycardia Diagnosis Line: Otherwise normal ECG Diagnosis Line: When compared with ECG of 07-MAY-2017 05:49, Diagnosis Line: (unconfirmed) Diagnosis Line: No significant change was found Diagnosis Line: Confirmed by JOSE JAMES MD ([id number]) on Diagnosis Line: 05/09/2017 12:32:59 PM INTERPRETING MD: JACOB VIDALES
--- NOTE | ~2017-05-05 | EKG ---
PATIENT: NAY FLETCHER UNIT #: [id number] Ventricular Rate: 50 BPM Atrial Rate: 50 BPM P-R Interval: 162 ms QRS Duration: 76 ms Q-T Interval: 420 ms QTC Calculation(Bezet): 382 ms P [place]: 49 degrees Calculated R [place]: 89 degrees Calculated T [place]: 75 degrees Diagnosis Line: Sinus bradycardia Diagnosis Line: Otherwise normal ECG Diagnosis Line: When compared with ECG of 07-MAY-2017 05:49, Diagnosis Line: (unconfirmed) Diagnosis Line: No significant change was found Diagnosis Line: Confirmed by JOSE JAMES MD ([id number]) on Diagnosis Line: 05/10/2017 2:00:12 PM INTERPRETING MD: JACOB VIDALES
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
--- NOTE | ~2017-05-05 | CT4 ---
[facility] A Service of [facility] RADIOLOGY TEXT RESULTS PATIENT: NAY FLETCHER LOCATION: [facility] : [birth year] UNIT #: [id number] AGE: [address]: Melissa Ortiz MD SEX: M ORDER DR: [id number] [place] [address] [place], [place] [address] [id number] E MR#: [id number] Acc #: [id number] NAME: NAY FLETCHER : 1965 SEX: M STUDY DATE/TIME: 05/05/2017 14:38 UNIT: [facility] ROOM: STUDY DESCRIPTION: CT Abd and Pelv Wo Cont Attending Physician: Melissa Ortiz M.D. Ordering Physician: Melissa Ortiz M.D. Primary Care Physician: No Primary Care Physician MEDICAL IMAGING REPORT This report is preliminary unless electronic signature is present EXAM CT abdomen and pelvis HISTORY Hypotensive today. Right lower quadrant pain today. Headache all over today. Unable to raise arms above head. TECHNIQUE CT abdomen and pelvis performed without administration of oral or intravenous contrast. This CT exam was performed with one or more of the following radiation dose reduction techniques: Automatic exposure control, adjustment of mA and/or kV according to patient size, and iterative reconstruction. COMPARISON 05/05/2017 FINDINGS There are some patchy densities at the bilateral dependent lung bases probably atelectatic in nature. Slightly more extensive than anticipated for dependent atelectasis. Correlate with any clinical concern for bibasilar pneumonitis. There is no dense airspace disease and no pleural effusion. The inferior heart and pericardium are unremarkable. The liver and gallbladder are remarkable. Previously seen splenic cyst or hemangioma significantly decreased in size now measuring about 1 cm, previously about 2 cm. Pancreas unremarkable. The left kidney and ureter are unremarkable. Previously seen left lower pole renal calculus no longer evident. No secondary signs of recent left side stone passage. There is a small 1-2 mm nonobstructing calculus lower pole right kidney. No right-sided hydronephrosis or hydroureter. CT PELVIS: No inguinal adenopathy. Urinary bladder unremarkable. Prostate unremarkable. No free fluid in pelvis. No pelvic or STS. [facility] A Service of [facility] RADIOLOGY TEXT RESULTS PATIENT: NAY [facility]LETCHER [id number] [birth year] UNIT #: [id number] AGE: [address]: Melissa Ortiz MD SEX: M ORDER DR: retroperitoneal adenopathy. The distal esophagus, stomach, small bowel unremarkable. Appendix normal. In the ascending colon, there is a segment of mural thickening extending over a distance of about 5-6 cm. There is some mild inflammatory haziness and stranding in the adjacent fat and there is a mildly inflamed diverticulum along the medial aspect of the involved segment. Appearance suggests right-sided diverticulitis. There is no free air, fluid collection, or abscess. I would recommend short-interval follow up after treatment for diverticulitis to ensure resolution of wall thickening. No obstruction. The more distal colon contains air and stool. There are some uncomplicated diverticuli distally. Atherosclerotic arterial calcifications. No aneurysm. Degenerative changes in the spine. Mild anterior wedge compression deformity L1. Stable. No acute-appearing bony abnormality. Old healed right iliac wing fracture. This has occurred in the interval from prior study. IMPRESSION 1. Findings most suggestive of diverticulitis involving the ascending colon. In the mid to distal ascending colon there is a 5-6 cm segment showing mural thickening with some adjacent fat stranding and haziness. At least one inflamed diverticulum is seen along the medial aspect of this colonic segment. There is no free air, fluid collection, or abscess and there is no obstruction. Short interval follow up after treatment for diverticulitis is strongly recommended to confirm resolution of wall thickening and to exclude underlying mass lesion. 2. There are some scattered uncomplicated diverticuli in the more distal colon. 3. Appendix normal. 4. Small 1-2 mm nonobstructing right lower pole renal calculus. Kidneys and urinary tract otherwise unremarkable. 5. Gallbladder normal. 6. There are some patchy densities in the dependent lungs bilaterally slightly more pronounced than anticipated for dependent atelectasis. Correlate clinically for any possible basilar pneumonitis. There is no dense airspace disease. 7. In the interval from 2010, the patient has had a now healed fracture of the right iliac wing. There is no acute-appearing bony abnormality. Dictated by... Mark Forbes M.D. THIS IS AN ELECTRONICALLY VERIFIED REPORT Mark Forbes M.D. at 05/05/2017 6:31 PM VALENTE/richard TD: 05/05/2017 17:30 [facility] A Service of [facility] RADIOLOGY TEXT RESULTS PATIENT: NAY FLETCHER [id number] [birth year] UNIT #: [id number] AGE: [address]: Melissa Ortiz MD SEX: M ORDER DR: JOB #: [id number] MEDICAL IMAGING REPORT Page 1 of 1 COPY
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
--- NOTE | ~2017-05-05 | EKG ---
PATIENT: NAY FLETCHER UNIT #: [id number] Ventricular Rate: 53 BPM Atrial Rate: 53 BPM P-R Interval: 158 ms QRS Duration: 92 ms Q-T Interval: 430 ms QTC Calculation(Bezet): 403 ms P [place]: 64 degrees Calculated R [place]: 105 degrees Calculated T [place]: 78 degrees Diagnosis Line: Sinus bradycardia Diagnosis Line: Rightward axis Diagnosis Line: Borderline ECG Diagnosis Line: When compared with ECG of 06-MAY-2017 18:08, Diagnosis Line: (unconfirmed) Diagnosis Line: No significant change was found Diagnosis Line: Confirmed by SANTOSH BECKER MD ([id number]) on 05/11/2017 Diagnosis Line: 7:36:39 AM INTERPRETING MD: ROSITA VIDALES
--- NOTE | ~2017-05-05 | EKG ---
PATIENT: NAY FLETCHER UNIT #: [id number] Ventricular Rate: 61 BPM Atrial Rate: 61 BPM P-R Interval: 168 ms QRS Duration: 98 ms Q-T Interval: 422 ms QTC Calculation(Bezet): 424 ms P [place]: 63 degrees Calculated R [place]: 99 degrees Calculated T [place]: 80 degrees Diagnosis Line: Normal sinus rhythm Diagnosis Line: Rightward axis Diagnosis Line: Borderline ECG Diagnosis Line: When compared with ECG of 18-JUL-2013 13:16, Diagnosis Line: (unconfirmed) Diagnosis Line: ST elevation now present in Anterior leads Diagnosis Line: T wave amplitude has increased in Inferior leads Diagnosis Line: Confirmed by JOSE JAMES MD ([id number]) on Diagnosis Line: 05/05/2017 1:34:47 PM INTERPRETING MD: JACOB VIDALES
--- NOTE | ~2017-05-05 | CR72 ---
[facility] A Service of [facility] RADIOLOGY TEXT RESULTS PATIENT: NAY FLETCHER LOCATION: [facility] : [birth year] UNIT #: [id number] AGE: [address]: Melissa Ortiz MD SEX: M ORDER DR: [id number] [facility] [address] [place], [place] [address] [id number] E MR#: [id number] #: [id number] NAME: NAY FLETCHER : 1965 SEX: M STUDY DATE/TIME: 05/05/2017 12:56 UNIT: [facility] ROOM: STUDY DESCRIPTION: CR Chest Single View Portable Attending Physician: Melissa Ortiz M.D. Ordering Physician: Melissa Ortiz M.D. Primary Care Physician: Primary Care Physician No MEDICAL IMAGING REPORT This report is preliminary unless electronic signature is present EXAM Chest portable, 05/05/2017 12:56 hours HISTORY 52-year-old man with hypotension today. History of diabetes and ethanol abuse. COMPARISON 04/11/2017 FINDINGS Portable upright chest is rotated to the right. Heart size is felt within normal limits for this positioning. Aortic contours are stable. There are calcified granulomata. There is mild hazy density in the left midlung left lung base. This could be artifact due to the rotation. There is no pleural effusion or pneumothorax. IMPRESSION 1. Film is limited by rightward rotation of the patient. There is hazy density of the left hemithorax relative to the right which could be technical due to the degree of rotation. Underlying edema or pneumonia in the left lung cannot be excluded. Consider followup two-view chest when possible. 2. Old post-traumatic changes left proximal humerus unchanged. Dictated by... Saskia Pacheco M.D. THIS IS AN ELECTRONICALLY VERIFIED REPORT Saskia Pacheco M.D. at 05/05/2017 7:19 PM Zach TD: 05/05/2017 14:53 [facility] A Service of [facility] RADIOLOGY TEXT RESULTS PATIENT: ANY FLETCHER [id number] [birth year] UNIT #: [id number] AGE: [address]: Melissa Ortiz MD SEX: M ORDER DR: JOB #: [id number] MEDICAL IMAGING REPORT Page 1 of 1 COPY
--- NOTE | ~2017-05-05 | EKG ---
PATIENT: NAY FLETCHER UNIT #: [id number] Ventricular Rate: 57 BPM Atrial Rate: 57 BPM P-R Interval: 166 ms QRS Duration: 70 ms Q-T Interval: 406 ms QTC Calculation(Bezet): 395 ms P [place]: 59 degrees Calculated R [place]: 89 degrees Calculated T [place]: 76 degrees Diagnosis Line: Sinus bradycardia Diagnosis Line: Junctional ST depression, probably normal Diagnosis Line: Borderline ECG Diagnosis Line: When compared with ECG of 05-MAY-2017 12:40, Diagnosis Line: ST now depressed in Anterior leads Diagnosis Line: Confirmed by JOSE JAMES MD ([id number]) on Diagnosis Line: 05/09/2017 8:52:55 AM INTERPRETING MD: JACOB VIDALES
[2017-05-05 13:08] LABS: BASOPHIL# 0.1 X10e3 (0-0.3); BASOPHIL% 1.2 % (0-2.5); DIFF IND NO; EOSINOPHIL# 0.3 X10e3 (0-0.7); EOSINOPHIL% 4.8 % (0.0-7.0); HEMATOCRIT 42.3 % (38.0-50.0); HEMOGLOBIN 14.6 gm/dL (13.0-16.0); LYMPHOCYTE# 2.3 X10e3 (1.0-3.5); LYMPHOCYTE% 43.1 % (17.0-45.0); MEAN CELL VOLUME 93.6 FL (83-96); MEAN CORPUSCULAR HEMOGLOBIN 32.4 PG (28-34); MEAN CORPUSCULAR HGB CONC 34.6 g/dL (30-36); MEAN PLATELET VOLUME 6.8 FL (6.5-11.5); MONOCYTE# 0.3 X10e3 (0-1.0); MONOCYTE% 6.4 % (3.0-12.0); NEUTROPHIL# 2.3 X10e3 (1.5-7.1); NEUTROPHIL% 44.5 % (40-75); PLATELET COUNT 254 X10e3 (140-420); RED BLOOD COUNT 4.52 X10e (3.90-5.60); RED CELL DISTRIBUTION WIDTH 14.5 % (11.0-15.5); WHITE BLOOD COUNT 5.2 X10e3 (4.0-10.5)
[2017-05-05 13:15] LABS: POC - CKMB 1.6 ng/mL (0.0-7.9); POC - TROPONIN <0.05 ng/mL (<=0.05)
[2017-05-05 13:34] LABS: ALKALINE PHOSPHATASE 70 U/L (32-92); ALT (SGPT) 12 U/L (10-40); AST (SGOT) 15 U/L (10-42); BILIRUBIN,TOTAL 0.5 mg/dL (0.2-2.0); BLOOD UREA NITROGEN 14 mg/dL (9-23); CALCIUM SERUM 8.3 mg/dL (8.4-10.2); CARBON DIOXIDE 26 mmol/L (22-31); CHLORIDE 108 mmol/L (100-111); CPK (CREATINE PHOSPHOKINASE) 112 IU/L (36-174); CREATININE SERUM 0.7 mg/dL (0.6-1.4); GLOM FILT RATE Estimated 110.1 mL/min (>60); GLUCOSE FASTING 92 mg/dL (70-110); LIPASE 23 U/L (22-51); MAGNESIUM 1.9 mg/dL (1.6-3.0); POTASSIUM 3.4 mmol/L (3.5-5.1); PROTEIN TOTAL SERUM 6.4 g/dL (6.0-8.3); SODIUM 140 mmol/L (135-145)
[2017-05-05 13:35] LABS: BILIRUBIN, DIRECT <0.1 mg/dL (0.0-0.2); BILIRUBIN,INDIRECT 0.4 mg/dL (0.0-0.9)
[2017-05-05 13:36] LABS: ALCOHOL BLOOD 235 mg/dL (0)
[2017-05-05 14:01] LABS: URINE SOURCE CLEAN CATCH
[2017-05-05 14:13] LABS: URINE APPEARANCE CLEAR; URINE BILIRUBIN NEG (NEG); URINE BLOOD NEG (NEG); URINE COLOR YELLOW; URINE GLUCOSE NEG (NEG); URINE KETONE NEG (NEG); URINE LEUKOCYTE ESTERASE NEG (NEG); URINE NITRATE NEG (NEG); URINE PH 5.5 (5-8); URINE PROTEIN NEG (NEG); URINE SPECIFIC GRAVITY 1.008 (1.003-1.035); URINE UROBILINOGEN 0.2 MG/DL (NEG)
[2017-05-05 14:16] LABS: CULTURE INDICATED? NO
[2017-05-05 14:36] LABS: AMPHETAMINE NEG (NEG); BARBITURATES NEG (NEG); BENZODIAZEPINES NEG (NEG); COCAINE NEG (NEG); MARIJUANA NEG (NEG); OPIATES NEG (NEG); TRICYCLIC ANTIDEPRESSANTS NEG (NEG); U METHADONE NEG (NEG)
[2017-05-05 15:12] LABS: POC - CKMB <1.0 ng/mL (0.0-7.9); POC - TROPONIN <0.05 ng/mL (<=0.05)
[2017-05-06 05:31] LABS: HEMATOCRIT 38.8 % (38.0-50.0); HEMOGLOBIN 13.5 gm/dL (13.0-16.0); MEAN CELL VOLUME 92.6 FL (83-96); MEAN CORPUSCULAR HEMOGLOBIN 32.3 PG (28-34); MEAN CORPUSCULAR HGB CONC 34.9 g/dL (30-36); MEAN PLATELET VOLUME 6.8 FL (6.5-11.5); RED BLOOD COUNT 4.19 X10e (3.90-5.60); RED CELL DISTRIBUTION WIDTH 14.2 % (11.0-15.5)
[2017-05-06 05:45] LABS: WHITE BLOOD COUNT 7.9 X10e3 (4.0-10.5)
[2017-05-06 06:05] LABS: CALCIUM SERUM 7.7 mg/dL (8.4-10.2); CREATININE SERUM 0.6 mg/dL (0.6-1.4); GLOM FILT RATE Estimated 117.3 mL/min (>60); POTASSIUM 3.3 mmol/L (3.5-5.1)
[2017-05-07 06:58] LABS: HEMATOCRIT 38.2 % (38.0-50.0); HEMOGLOBIN 13.3 gm/dL (13.0-16.0); MEAN CELL VOLUME 92.1 FL (83-96); MEAN CORPUSCULAR HGB CONC 34.7 g/dL (30-36); RED BLOOD COUNT 4.15 X10e (3.90-5.60); RED CELL DISTRIBUTION WIDTH 13.8 % (11.0-15.5); WHITE BLOOD COUNT 6.7 X10e3 (4.0-10.5)
[2017-05-07 07:43] LABS: BUN/CREATININE RATIO 6.25; CALCIUM SERUM 8.1 mg/dL (8.4-10.2); CREATININE SERUM 0.8 mg/dL (0.6-1.4); GLOM FILT RATE Estimated 104.2 mL/min (>60); MAGNESIUM 1.7 mg/dL (1.6-3.0); POTASSIUM 3.4 mmol/L (3.5-5.1)
[2017-05-08 05:48] LABS: HEMOGLOBIN 12.9 gm/dL (13.0-16.0); MEAN CELL VOLUME 92.4 FL (83-96); MEAN CORPUSCULAR HEMOGLOBIN 32.1 PG (28-34); MEAN CORPUSCULAR HGB CONC 34.8 g/dL (30-36); MEAN PLATELET VOLUME 7.1 FL (6.5-11.5); RED CELL DISTRIBUTION WIDTH 14.1 % (11.0-15.5); WHITE BLOOD COUNT 5.1 X10e3 (4.0-10.5)
[2017-05-08 06:40] LABS: CALCIUM SERUM 8.5 mg/dL (8.4-10.2); CREATININE SERUM 0.6 mg/dL (0.6-1.4); GLOM FILT RATE Estimated 117.3 mL/min (>60); POTASSIUM 3.6 mmol/L (3.5-5.1)
[2017-05-10] MEDS ORDERED: FLAGYL PO (17:30)
[2017-05-10] MEDS ORDERED: ALDACTONE25 MG PO (17:30)
[2017-05-10] MEDS ORDERED: TYL325 PO (17:31)
== END 2017-05-10 19:03 | disposition home or self-care (01) | DRG 896 ==
LOC: CED 12:01 → C5C 17:37 → CED 17:57 → C5C 05-06 07:38 → C2A 05-08 20:51
PROVIDERS: Emergency Medicine; Family Medicine; Internal Medicine
PROC: B246YZZ Ultrasonography of Right and Left Heart using Other Contrast (ICD-10-PCS; principal; 2017-05-07)
DX: F10.229 Alcohol dependence with intoxication, unspecified (principal); J69.0 Pneumonitis due to inhalation of food and vomit; I44.2 Atrioventricular block, complete; I95.9 Hypotension, unspecified; K57.32 Diverticulitis of large intestine without perforation or abscess without bleeding; E11.9 Type 2 diabetes mellitus without complications; G40.909 Epilepsy, unspecified, not intractable, without status epilepticus; G43.909 Migraine, unspecified, not intractable, without status migrainosus; Y90.7 Blood alcohol level of 200-239 mg/100 ml; F17.200 Nicotine dependence, unspecified, uncomplicated; Z59.0 Homelessness; Z87.820 Personal history of traumatic brain injury; M54.9 Dorsalgia, unspecified; G89.29 Other chronic pain; R00.1 Bradycardia, unspecified; I10 Essential (primary) hypertension; E87.6 Hypokalemia; R53.1 Weakness
CPT/HCPCS: 36415; 70450; 71010; 74176; 80048; 80076; 80307; 81003; 82140; 82550; 82553; 82607; 82947; 83036; 83605; 83690; 83735; 83880; 84443; 84484; 85025; 85027; 87040; 93005; 93306; 94760; 96361; 96365; 96368; 99285; G0480; J0696; J1650; J1956; J2543; J3411; J3420; J3475; J7042

== ENCOUNTER 2017-05-29 21:18 | Emergency (ER) | payer OTHER ==
[~2017-05-29] VITALS: Ht 170.2 cm; Wt 65.8 kg
[~2017-05-29 21:18] MED LIST changes: +ALDACTONE25 MG PO; +FLAGYL PO; +TYL325 PO
== END 2017-05-29 23:07 | disposition home or self-care (01) ==
LOC: SED 21:18
DX: F10.129 Alcohol abuse with intoxication, unspecified (principal); Z79.899 Other long term (current) drug therapy
CPT/HCPCS: 99284

== ENCOUNTER 2017-06-26 18:19 | Inpatient (IN) | payer OTHER ==
[~2017-06-26] VITALS: Ht 170.2 cm; Wt 49.9 kg
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
--- NOTE | ~2017-06-26 | A ---
[facility] DATE: 06/27/17 Patient: NAY FLETCHER Physician: CAROL Address: [address] [facility] Room/Bed: [address], Zip: [place] [address] Admit Date: 06/26/17 Date of : [birth year] Height: 5 7 Weight: 110 49.89 NUTRITIONAL ASSESSMENT: REASON: Low BMI Admitting dx: Pt is a 52 y/o male admitted with an LAYLA, N/V/D, and hypokalemia PMH: ETOH abuse, seizures, diverticulitis, migraines, chronic back pain, TBI, craniotomy, 1/2 PPD smoker, DMT2 (per pt, not documented) Anthropometrics: Ht:67" Wt:110# BMI:17 Labs: Na+:132, K+:2.9, Cl-:112, BUN:82, Ca++:8.3, Amyl:93 Meds: therapeutic formula, keppra, zofran, NaCl, KCl, MgSO4 I/O & Bowel function: N/A (no shift assessment available yet) Skin Integrity: N/A (no shift assessment available yet) Estimated Nutrition Needs: Increased Assessment: Chart reviewed, events noted. Pt is noted to be a poor historian. Manager Casino was able to speak to the pt at [facility]. Pt was groggy/out of it. Pt denies any weight loss and reports that he has gained a couple of pounds recently, but is unsure of how much or the timeframe. Per report, pt denies ETOH abuse for the past 6 months. Of note, pt is currently on a clear liquid diet. Pt reports lower appetite, but is unsure of how much he is eating at this moment. Manager Casino noticed a few clear liquid juices from a tray that were not finished. Manager Casino encouraged the pt to try a supplement to increase his nutrition intake. Pt agreed to try Ensure Clear. RD will follow per protocol. Dx: 1) Inadequate protein-energy intake r/t ETOH abuse, decreased appetite AEB clear liquid diet, need for ONS. 2) Underweight r/t ETOH abuse, decreased appetite AEB BMI 17. Intervention: See RD recs below Monitoring, Evaluation and Goals: 1. Tolerance of diet advancement with PO intake >75% of meals/supps. 3. Lytes/labs WNL. 4. Promote weight gain towards a healthy BMI (19-25) [facility] DATE: 06/27/17 Patient: NAY FLETCHER Physician: CAROL Address: [address] [place] [address] Room/Bed: [address] [place] [address], Zip: [place] [address] Admit Date: 06/26/17 Date of : [birth year] Height: 5 7 Weight: 110 49.89 Monitor: per protocol, criteria to determine if above goals met Recommendations: 1. Please order Ensure Clear BID to supplement poor PO intake and promote gradual weight gain towards a healthy BMI. Once medically able, advance oral diet as tolerated to regular diet. 2. Obtain A1C as pt reports history of DM type II. Replace lytes prn (K+ low). 3. Weigh q 3 days for monitoring purposes. Pt is a mild nutrition risk. RD will follow Respectfully, Tasia Charles, Tuckpointer Isabella Agee, RD, LD [facility] cc: client file
--- NOTE | ~2017-06-26 | CR72 ---
[facility] A Service of [facility] RADIOLOGY TEXT RESULTS PATIENT: NAY FLETCHER LOCATION: C2A 219-01 : [birth year] UNIT #: [id number] AGE: [address]: Harjeet Bridges MD SEX: M ORDER DR: [id number] [facility] [address] [facility]. [place], [place] [address] [id number] MR#: [id number] Acc #: [id number] NAME: NAY FLETCHER : 1965 SEX: M STUDY DATE/TIME: 06/26/2017 20:26 UNIT: C2A ROOM: 219 STUDY DESCRIPTION: CR Chest Single View Portable Attending Physician: Harjeet Bridges M.D. Ordering Physician: Melissa Ortiz M.D. Primary Care Physician: Primary Care Physician No MEDICAL IMAGING REPORT This report is preliminary unless electronic signature is present EXAM Portable chest HISTORY Cough and weakness and confusion for 1 week. FINDINGS The cardiac size and pulmonary vascularity are normal. Mild right thoracic curve. No airspace infiltrates or effusions. IMPRESSION No acute findings. Dictated by... Hemant Holder M.D. THIS IS AN ELECTRONICALLY VERIFIED REPORT Hemant Holder M.D. at 06/27/2017 3:35 PM DFL/psc TD: 06/27/2017 11:38 JOB #: [id number] MEDICAL IMAGING REPORT Page 1 of 1 COPY
--- NOTE | ~2017-06-26 | DS ---
Unit #: [id number] #: [id number] Patient: NAY FLETCHER [id number] [address] [address] [id number] MR#: [id number] NAME: NAY FLETCHER ROOM: 219 Age: 52 Sex: M Admission Date: 06/26/2017 : 1965 Discharge Date: 06/29/2017 Attending Physician: Harjeet Bridges M.D. Primary Care Physician: No Primary Care Physician DISCHARGE SUMMARY PRIMARY DIAGNOSIS Primary diagnosis was refeeding syndrome. SECONDARY DIAGNOSES Secondary diagnoses were: 1. Dehydration secondary to viral gastroenteritis. 2. Acute kidney injury secondary to dehydration and ibuprofen. 3. Hypokalemia, severe, secondary to refeeding syndrome and malnutrition and improvement of acidosis. 4. Metabolic acidosis possibly secondary to starvation ketosis, resolved at discharge. 5. Severe total calorie malnutrition, present on admission. 6. Anemia, likely related to malnutrition, worsened during hospitalization due to dilution with high-flow IV fluids. Hemoglobin ranged from 9.5 to 9.9 at the time of discharge. HOSPITAL COURSE Patient was admitted to the hospital with dehydration, nausea, vomiting and diarrhea and severe hypokalemia. With hydration, the patient's potassium improved, bicarb was added to the patient's fluid for a basic metabolic profile bicarb level that dropped to 13, although it started low at admission. Bicarb improved significantly with this treatment, but it did make the patient's hypokalemia more difficult to treat, and patient remained in the hospital in attempts to get his potassium stores back up to a level where he could maintain a potassium level above 3.5. All the patient's acute issues improved during the hospitalization. He is still suffering from severe total calorie malnutrition and anemia. Review of old records shows he had a history of [id number] B12 levels, and I have placed him on some supplemental B12, as well as a multivitamin, and advised him to get at least 2,200 calories per day. 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 He has significant weakness at baseline and has chronic verbal slurring at baseline, although he is understandable. He was evaluated by physical therapy while here in the hospital but refused placement at subacute rehab. We will be discharging him home with home health physical therapy, occupational therapy. He was insistent on going home so he can continue following up with his Alcoholics Anonymous group and reports that he has not been drinking for the last 6 months. The patient's pharmacy was called to determine what his home medications were, as he had suggested that he was on some medications, including Unit #: [id number] #: [id number] Patient: NAY FLETCHER. However, discussion with his pharmacy revealed he was not actually taking any medications, so at this time I have not recommended continuing any medications, as it appears he is off of them all. I have given him a script for B12 and multivitamin. DISCHARGE DISPOSITION Discharge disposition is to home with home health. DISCHARGE STATUS Discharge status is stable. DISCHARGE ACTIVITY Discharge activity is with a rolling walker at all times. He was given a rolling walker while here. DISCHARGE DIET Discharge diet is at least 2,200 calories per day. No restrictions. DISCHARGE FOLLOWUP Followup is with his PCP in 2 to 4 weeks. DISCHARGE MEDICATIONS B12 - 1,000 mcg p.o. daily and multivitamin 1 tablet p.o. daily. Dictated by... Harjeet Bridges M.D. VIRAJ/eliza TD: 06/30/2017 08:37 JOB #: [id number] DISCHARGE SUMMARY Page 1 of 1 X Harjeet Bridges MD X DISCHARGE SUMMARY
--- NOTE | ~2017-06-26 | EKG ---
PATIENT: NAY FLETCHER UNIT #: [id number] Ventricular Rate: 104 BPM Atrial Rate: 104 BPM P-R Interval: 144 ms QRS Duration: 98 ms Q-T Interval: 396 ms QTC Calculation(Bezet): 520 ms P [place]: 77 degrees Calculated R [place]: 91 degrees Calculated T [place]: 62 degrees Diagnosis Line: Sinus tachycardia Diagnosis Line: Right atrial enlargement Diagnosis Line: Rightward axis Diagnosis Line: Prolonged QT Diagnosis Line: Abnormal ECG Diagnosis Line: When compared with ECG of 09-MAY-2017 06:17, Diagnosis Line: Significant changes have occurred Diagnosis Line: Confirmed by JOSE JAMES MD ([id number]) on Diagnosis Line: 06/27/2017 8:06:12 AM INTERPRETING MD: JACOB VIDALES
[2017-06-26 19:25] LABS: POC - CKMB 9.4 ng/mL (0.0-7.9); POC - TROPONIN <0.05 ng/mL (<=0.05)
[2017-06-26 19:44] LABS: BASOPHIL# 0.1 X10e3 (0-0.3); BASOPHIL% 0.6 % (0-2.5); EOSINOPHIL# 0.1 X10e3 (0-0.7); HEMATOCRIT 44.1 % (38.0-50.0); HEMOGLOBIN 15.7 gm/dL (13.0-16.0); LYMPHOCYTE# 1.4 X10e3 (1.0-3.5); LYMPHOCYTE% 14.8 % (17.0-45.0); MEAN CELL VOLUME 87.5 FL (83-96); MEAN CORPUSCULAR HEMOGLOBIN 31.2 PG (28-34); MEAN CORPUSCULAR HGB CONC 35.6 g/dL (30-36); MEAN PLATELET VOLUME 8.3 FL (6.5-11.5); MONOCYTE# 0.9 X10e3 (0-1.0); MONOCYTE% 10.1 % (3.0-12.0); NEUTROPHIL# 6.8 X10e3 (1.5-7.1); NEUTROPHIL% 73.5 % (40-75); PLATELET COUNT 455 X10e3 (140-420); RED BLOOD COUNT 5.04 X10e (3.90-5.60); RED CELL DISTRIBUTION WIDTH 13.6 % (11.0-15.5); WHITE BLOOD COUNT 9.3 X10e3 (4.0-10.5)
[2017-06-26 19:45] LABS: DIFF IND NO
[2017-06-26 19:51] LABS: ALBUMIN SERUM 4.6 g/dL (3.5-5.0); ALKALINE PHOSPHATASE 65 U/L (32-92); ALT (SGPT) 12 U/L (10-40); AST (SGOT) 16 U/L (10-42); BILIRUBIN,TOTAL 0.8 mg/dL (0.2-2.0); BLOOD UREA NITROGEN 99 mg/dL (9-23); BUN/CREATININE RATIO 70.71; CALCIUM SERUM 9.1 mg/dL (8.4-10.2); CARBON DIOXIDE 16 mmol/L (22-31); CHLORIDE 99 mmol/L (100-111); CREATININE SERUM 1.4 mg/dL (0.6-1.4); GLOM FILT RATE Estimated 58.2 mL/min (>60); GLUCOSE FASTING 134 mg/dL (70-110); MAGNESIUM 2.8 mg/dL (1.6-3.0); PROTEIN TOTAL SERUM 7.5 g/dL (6.0-8.3); SODIUM 127 mmol/L (135-145)
[2017-06-26 19:54] LABS: ALCOHOL BLOOD <5 mg/dL ([, 0])
[2017-06-26 20:47] LABS: URINE SOURCE CLEAN CATCH
[2017-06-26 20:53] LABS: URINE APPEARANCE CLEAR; URINE BILIRUBIN NEG (NEG); URINE BLOOD TRACE (NEG); URINE COLOR YELLOW; URINE GLUCOSE NEG (NEG); URINE KETONE NEG (NEG); URINE LEUKOCYTE ESTERASE NEG (NEG); URINE NITRATE NEG (NEG); URINE PH 6.5 (5-8); URINE PROTEIN 2+ (NEG); URINE SPECIFIC GRAVITY 1.018 (1.003-1.035); URINE UROBILINOGEN 0.2 MG/DL (NEG)
[2017-06-26 20:56] LABS: CULTURE INDICATED? YES; URINE BACTERIA AUWI NEG (NEGATIVE); URINE SQUAMOUS EPITHELIAL CELL MOD /[HPF]
[2017-06-26 21:01] LABS: U HYALINE CASTS AUWI 0-2 /[LPF]
[2017-06-26 21:03] LABS: AMPHETAMINE NEG (NEG); BARBITURATES NEG (NEG); BENZODIAZEPINES NEG (NEG); COCAINE NEG (NEG); MARIJUANA NEG (NEG); OPIATES NEG (NEG); TRICYCLIC ANTIDEPRESSANTS NEG (NEG); U METHADONE NEG (NEG)
[2017-06-27 02:42] LABS: BASOPHIL% 0.5 % (0-2.5); EOSINOPHIL# 0.1 X10e3 (0-0.7); EOSINOPHIL% 1.4 % (0.0-7.0); LYMPHOCYTE# 1.3 X10e3 (1.0-3.5); LYMPHOCYTE% 14.2 % (17.0-45.0); MEAN CELL VOLUME 87.7 FL (83-96); MEAN CORPUSCULAR HEMOGLOBIN 31.2 PG (28-34); MEAN CORPUSCULAR HGB CONC 35.6 g/dL (30-36); MEAN PLATELET VOLUME 8.2 FL (6.5-11.5); MONOCYTE# 0.8 X10e3 (0-1.0); MONOCYTE% 9.3 % (3.0-12.0); NEUTROPHIL# 6.6 X10e3 (1.5-7.1); NEUTROPHIL% 74.6 % (40-75); PLATELET COUNT 331 X10e3 (140-420); RED BLOOD COUNT 4.11 X10e (3.90-5.60); RED CELL DISTRIBUTION WIDTH 13.8 % (11.0-15.5); WHITE BLOOD COUNT 8.8 X10e3 (4.0-10.5)
[2017-06-27 02:48] LABS: HEMOGLOBIN 12.8 gm/dL (13.0-16.0)
[2017-06-27 02:49] LABS: DIFF IND NO
[2017-06-27 03:44] LABS: CALCIUM SERUM 8.3 mg/dL (8.4-10.2); GLOM FILT RATE Estimated 87.4 mL/min (>60); MAGNESIUM 2.3 mg/dL (1.6-3.0)
[2017-06-27 03:45] LABS: POTASSIUM 2.9 mmol/L (3.5-5.1)
[2017-06-27] MEDS ORDERED: NO MEDICATIONS (15:34)
[2017-06-28 06:02] LABS: HEMATOCRIT 27.4 % (38.0-50.0); MEAN CELL VOLUME 85.5 FL (83-96); MEAN CORPUSCULAR HEMOGLOBIN 30.9 PG (28-34); MEAN CORPUSCULAR HGB CONC 36.1 g/dL (30-36); MEAN PLATELET VOLUME 8.1 FL (6.5-11.5); RED BLOOD COUNT 3.21 X10e (3.90-5.60); RED CELL DISTRIBUTION WIDTH 13.6 % (11.0-15.5)
[2017-06-28 06:03] LABS: HEMOGLOBIN 9.9 gm/dL (13.0-16.0)
[2017-06-28 06:31] LABS: CALCIUM SERUM 8.4 mg/dL (8.4-10.2); CREATININE SERUM 0.8 mg/dL (0.6-1.4); GLOM FILT RATE Estimated 104.2 mL/min (>60); MAGNESIUM 1.9 mg/dL (1.6-3.0)
[2017-06-28 06:38] LABS: POTASSIUM 2.5 mmol/L (3.5-5.1)
[2017-06-28 20:46] LABS: MAGNESIUM 1.9 mg/dL (1.6-3.0); POTASSIUM 3.4 mmol/L (3.5-5.1)
[2017-06-29 07:29] LABS: HEMATOCRIT 26.6 % (38.0-50.0); HEMOGLOBIN 9.5 gm/dL (13.0-16.0); MEAN CELL VOLUME 88.4 FL (83-96); MEAN CORPUSCULAR HEMOGLOBIN 31.7 PG (28-34); MEAN CORPUSCULAR HGB CONC 35.9 g/dL (30-36); MEAN PLATELET VOLUME 8.6 FL (6.5-11.5); RED BLOOD COUNT 3.01 X10e (3.90-5.60); RED CELL DISTRIBUTION WIDTH 13.7 % (11.0-15.5); WHITE BLOOD COUNT 11.2 X10e3 (4.0-10.5)
[2017-06-29 08:14] LABS: BUN/CREATININE RATIO 31.66; CALCIUM SERUM 8.3 mg/dL (8.4-10.2); CREATININE SERUM 0.6 mg/dL (0.6-1.4); GLOM FILT RATE Estimated 117.3 mL/min (>60); POTASSIUM 4.4 mmol/L (3.5-5.1)
[2017-06-29] MEDS ORDERED: VITAMIN B122500 MCG PO (11:10)
[2017-06-29] MEDS ORDERED: MULTI-VITAMIN1 EAC1 PO (11:10)
== END 2017-06-29 15:22 | disposition home health service (06) | DRG 682 ==
LOC: CED 18:19 → CEDOF 22:00 → C2A 22:00 → CEDOF 22:31 → CED 22:31 → C2A 06-27 08:19 → CEDOF 06-27 08:19 → C2A 06-27 09:32
PROVIDERS: Emergency Medicine; Internal Medicine
DX: N17.9 Acute kidney failure, unspecified (principal); E43 Unspecified severe protein-calorie malnutrition; E87.2 Acidosis; Z68.1 Body mass index [BMI] 19.9 or less, adult; E86.0 Dehydration; R19.7 Diarrhea, unspecified; G40.909 Epilepsy, unspecified, not intractable, without status epilepticus; G43.909 Migraine, unspecified, not intractable, without status migrainosus; Z87.820 Personal history of traumatic brain injury; M54.9 Dorsalgia, unspecified; G89.29 Other chronic pain; F17.210 Nicotine dependence, cigarettes, uncomplicated; E87.6 Hypokalemia; A08.4 Viral intestinal infection, unspecified; F10.21 Alcohol dependence, in remission
CPT/HCPCS: 36415; 71010; 80048; 80053; 80307; 81003; 82150; 82553; 82947; 83605; 83735; 84132; 84484; 85025; 85027; 87040; 87086; 93005; 96361; 96365; 97116; 97162; 97166; 97535; 99285; G0480; G8978-GP; G8979-GP; G8987-GO; G8988-GO; J3475; J3480; J7060